=== PATIENT | male | born 1930 | race Caucasian/White ===

== ENCOUNTER 2016-11-08 16:47 | Emergency (ER) | payer MEDICARE ==
[~2016-11-08 16:47] MED LIST: FISH12002 PO; METO50TA10 PO; METO50TA2 PO; TRIA1TAB3 PO
--- NOTE | 2016-11-08 17:06 | RAD ---
CT head without contrast History: Weakness, confusion. Code stroke. Comparison: None. Procedure: Axial images are obtained of the head from the skull base through the vertex without IV contrast. One or more of the following individualized dose reduction techniques were utilized for the study: Automated exposure control Adjustment of mA and/or kV according to patient's size Use of iterative reconstruction technique. Findings: The ventricles and sulci are normal for the patient's age. No mass-effect, intracranial mass, midline shift, hemorrhage or obvious acute infarction is identified. Basilar cisterns are patent. 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 Old left medial occipital infarction is seen. Mild patchy, nonspecific white matter low attenuation is seen, probably from chronic microvascular ischemic disease. Bone windows demonstrate no significant calvarial abnormality. The visualized paranasal sinuses appear clear. Impression: 1. No acute intracranial process. Please note that CT can be relatively insensitive to acute ischemic infarction for up to 24 hours after symptom onset. 2. 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 3. Nonspecific white matter changes, probably from chronic microvascular ischemic disease. 4. Results discussed with emergency staff, Dr. Piña, at 1703 hours.
--- NOTE | 2016-11-08 17:17 | PHYS DOC ---
Adult General Chief Complaint Chief Complaint: WEAKNESS/GENERALIZED HPI HPI 86-year-old gentleman presenting to the emergency department after being somnolent. He comes today by paramedics who report the patient having slurred speech. A code stroke was activated. The patient's last known normal was 13 00. Review of systems was negative for chest pain shortness of breath abdominal pain nausea vomiting. The patient denies any pain. He is feeling better. All other review of systems is negative unless otherwise noted in history of present illness. Pertinent physical exam findings: On examination of the patient he has 5 out of 5 strength in all extremities without drift. He has a symmetric facial smile. He does not have slurred speech on my examination. Vision is within normal limits. Sensation normal. No evidence of dysdiadochokinesia. Patient has normal finger to nose. ED course: 86-year-old gentleman presenting to the emergency department with slurred speech which has improved on my examination. He is currently asymptomatic. Head CT unremarkable. Blood work and EKG obtained. I had a long risk-benefit discussion with the family. The patient is comfort care only and does not desire to stay in the hospital. I offered the patient admission for TIA like symptoms. He and his family declined respectfully. The patient was road tested in the emergency department and subsequently discharged home to follow-up with his primary care physician for an echocardiogram and for a duplex ultrasound of the carotids. The patient's goals of care I felt this to be within reason. The patient was then discharged home. Review of Systems Review of Systems SEE ABOVE. Allergies Allergies Allergies Coded Allergies Type Severity Reaction Last Updated Verified Sulfa (Sulfonamide Antibiotics) Allergy Intermediate 06/20/16 Yes meperidine Allergy Intermediate 06/20/16 Yes promethazine Allergy Intermediate 06/20/16 Yes Physical Exam Physical Exam Constitutional: Well developed, well nourished, no acute distress, non-toxic appearance. HENT: Normocephalic, atraumatic, bilateral external ears normal, oropharynx moist, no oral exudates, nose normal. [] Eyes: PERRLA, EOMI, conjunctiva normal, no discharge. [] Neck: Normal range of motion, no tenderness, supple, no stridor. Cardiovascular:Heart rate regular rhythm, no murmur [] Lungs & Thorax: Bilateral breath sounds clear to auscultation Abdomen: Bowel sounds normal, soft, no tenderness, no masses, no pulsatile masses. [] Skin: Warm, dry, no erythema, no rash. [] Back: No tenderness, no CVA tenderness. Extremities: No tenderness, no cyanosis, no clubbing, ROM intact, no edema. [] Neurologic: Mental status: Awake oriented and alert x3 Cranial nerves: Extraocular movements intact, eyebrows pilar bilaterally smile symmetric, uvula elevation, shoulder shrug intact, tongue protrusion normal DTRs: 2+ Sensation: equal and normal in all extremities Strength: 5/5 in upper and lower extremities bilaterally Psychologic: Affect normal, judgement normal, mood normal. EKG EKG [] Radiology/Procedures Radiology/Procedures [] Course & Med Decision Making Course & Med Decision Making Pertinent Labs and Imaging studies reviewed. (See chart for details) [] Dragon Disclaimer Dragon Disclaimer This chart was dictated in whole or in part using Voice Recognition software in a busy, high-work load, and often noisy Emergency Department environment. It may contain unintended and wholly unrecognized errors or omissions. Departure Departure: Impression: Primary Impression: TIA (transient ischemic attack) Disposition: 01 HOME, SELF-CARE Admitting Physician: Bola Glynn Condition: STABLE Referrals: BOLA GLYNN MD (PCP) Patient Instructions: Transient Ischemic Attack Additional Instructions: You will need an ultrasound of the heart and arteries of the neck within 2 days coordinated by her primary care physician. Thank you for allowing us to participate in your care today. If you do not have a primary care provider you can ask for a list of our primary care providers. Return to the emergency department you have any new or concerning findings. This should be evaluated by the primary care physician and any necessary consulting services for continued management within a few days after discharge. Return to emergency room if you have any new or concerning symptoms including but not limited to fever, chills, nausea, vomiting, intractable pain, any new rashes, chest pain, shortness of air, uncontrolled bleeding, difficulty breathing, and/or vision loss. LILI DELA CRUZ MD November 08, 2016 17:17
--- NOTE | 2016-11-08 17:22 | EKG ---
[address] [address] Test Date: 2016-11-08 Test Time: 17:11:52 Pat Name: CARLEY ROSALES Department: Room: Gender: M [employer]: : 1930 Requested By: LILI DELA CRUZ Order Number: [id number] Reading MD: Santana Mathis Measurements Intervals [place] Rate: 74 P: [place]: QRS: -67 QRSD: 202 T: 108 QT: 470 QTc: 522 Interpretive Statements SUSPECT V-PACED RHYTHM Electronically Signed On 11-12-2016 12:53:26 CDT by Santana Mathis
[2016-11-08 17:36] LABS: BASO % 0 % (0-3); EOS # 0.2 x10^3/uL (0.0-0.7); EOS % 3 % (0-3); HEMATOCRIT 44.6 % (39.0-53.0); HEMOGLOBIN 15.3 g/dL (13.0-17.5); LYMPH # 2.8 x10^3/uL (1.0-4.8); LYMPH % 45 % (24-48); MEAN CORPUSCULAR HEMOGLOBIN 32 pg (25-35); MEAN CORPUSCULAR HGB CONC 34 g/dL (31-37); MEAN CORPUSCULAR VOLUME 92 fL (79-100); MONO # 0.8 x10^3/uL (0.0-1.1); MONO % 12 % (0-9); NEUT # 2.4 x10^3uL (1.8-7.7); NEUT % 40 % (31-73); PLATELET COUNT 159 x10^3/uL (140-400); RED BLOOD COUNT 4.85 x10^6/uL (4.30-5.70); RED CELL DISTRIBUTION WIDTH 15.8 % (11.5-14.5); WHITE BLOOD COUNT 6.2 x10^3/uL (4.0-11.0)
[2016-11-08 17:50] LABS: ALBUMIN 3.2 g/dL (3.4-5.0); ALBUMIN/GLOBULIN RATIO 1.1 (1.0-1.7); CALCIUM 8.3 mg/dL (8.5-10.1); CREATININE 1.1 mg/dL (0.7-1.3); GFR 63.6; POTASSIUM 3.7 mmol/L (3.5-5.1); TOTAL BILIRUBIN 1.3 mg/dL (0.2-1.0); TOTAL PROTEIN 6.2 g/dL (6.4-8.2)
[2016-11-08 19:00] VITALS: BP 170/95
== END 2016-11-08 19:02 | disposition home or self-care (01) ==
LOC: ER 16:47
DX: G45.9 Transient cerebral ischemic attack, unspecified (principal); Z88.2 Allergy status to sulfonamides; Z88.8 Allergy status to other drugs, medicaments and biological substances
CPT/HCPCS: 36415; 70450; 80053; 82947; 84484; 85027; 93005; 99285-25

== ENCOUNTER 2017-07-29 03:38 | Inpatient (IN) | payer MEDICARE ==
[2017-07-29] VITALS (11 sets, daily range): BP systolic 124–165; BP diastolic 66–86
[~2017-07-29] VITALS: Ht 182.9 cm; Wt 123.4 kg
[~2017-07-29 03:38] MED LIST changes: -METO50TA10 PO; -METO50TA2 PO; +METO50TA29 PO; +METO50TA6 PO
--- NOTE | 2017-07-29 03:53 | PHYS DOC ---
Past History Past Medical History: CHF, COPD, CVA, Hypertension Additional Past Medical Histor: generalized weakness, chronic back pain since age of 14 Past Surgical History: Pacemaker, Other Additional Past Surgical Histo: back surgery right foot surgery Alcohol Use: None Drug Use: None Adult General Chief Complaint Chief Complaint: generalized weakness HPI HPI Patient is a pleasant 87-year-old male with a history of A. fib and RVR, COPD, prior CVA, generalized weakness, chronic peripheral edema, chronic lower back pain, who presents with generalized weakness has been plaguing him for months and a fall he sustained 3 days ago. Patient was trying to get out of bed to use restroom when he slipped and fell significant between the wall and the bed. He did not injure himself he has chronic lower back pain is nothing new about this today. Family physician this morning was concerned about this increased weakness although is not anything specific patient is generally has decreased energy they wanted him evaluated in the emergency department. This point patient is not complaining of chest pain, shortness of breath, fevers, chills, increased weight gain, patient has a decent appetite needs to meals a day A jokingly says it goes right to my belly. Patient denies any fevers, chills, recent cough, runny nose. He normally uses home BiPAP for sleep. He is not on typical oxygen during the day. Uses a walker to ambulate. Patient denies any specific focal neurologic deficit. Patient denies any change in medications. My differential includes but not limited to: Neurally mediated vasovagal syncope, situational syncope, cardiac sinus syncope , orthostatic hypertension, medications, psychiatric interventions, neurologic syncope, cardiogenic syncopal B, to include organic heart disease congestive heart failure, cardiac dysrhythmia, seizure disorder, stroke or transient ischemic attack, bradycardia dysrhythmias, tachycardia dysrhythmias, PT, V. fib V. fib, cardiac abnormalities like first degree secondary third-degree AV blocks , prolonged QT, hypertrophic Cardio myopathy, severe pulmonic stenosis, pulmonary arterial hypertension, atrial myxomas, aortic stenosis, valvular failure, alcohol consumption, adrenal insufficiency, drug effects from things like antidepressants, antihypertensive agents like beta blockers, vasodilators including calcium channel blockers and nitrates, autonomic insufficiency. Review of Systems Review of Systems Constitutional: Denies fever or chills [] Eyes: Denies change in visual acuity, redness, or eye pain [] HENT: Denies nasal congestion or sore throat [] Respiratory: Denies cough but is chronically short of breath Cardiovascular: No additional information not addressed in HPI [] GI: Denies abdominal pain, nausea, vomiting, bloody stools or diarrhea [] : Denies dysuria or hematuria [] Musculoskeletal: Patient planes of chronic lower back pain since age of 14 after he sustained an injury. Integument: Denies rash or skin lesions [] Neurologic: Denies headache, focal weakness or sensory changes patient complains of generalized weakness although not new. Endocrine: Denies polyuria or polydipsia [] All other systems were reviewed and found to be within normal limits, except as documented in this note. Allergies Allergies Allergies Coded Allergies Type Severity Reaction Last Updated Verified Sulfa (Sulfonamide Antibiotics) Allergy Intermediate 06/20/16 Yes meperidine Allergy Intermediate 06/20/16 Yes promethazine Allergy Intermediate 06/20/16 Yes Physical Exam Physical Exam Constitutional: Patient is heavy obese with significant stating of his close. HENT: Normocephalic, atraumatic, bilateral external ears normal, oropharynx right with significant chapped lips., no oral exudates, nose normal. [] Eyes: PERRLA, EOMI, conjunctiva injected and dry., no discharge. [] Neck: Normal range of motion, no tenderness, supple, no stridor. [] Cardiovascular:Heart rate regular rhythm, no murmur [] Lungs & Thorax: Coarse rhonchi throughout the bases bilaterally with no clear crackles, no sensory muscle use, no retractions. Abdomen: Bowel sounds normal, soft, no tenderness, no masses, no pulsatile masses. [] Skin: Warm, dry, no erythema, no rash. [] Back: No specific midline tenderness noted. No trauma noted, no ecchymoses, no soft tissue swelling. Patient has a well-healed scar in the midline lumbar spine Extremities: No tenderness, no cyanosis, no clubbing, decreased range of motion of the lower legs bilaterally with significant +2 pitting edema to the mid thigh. Patient has no external signs of trauma in the lower legs. Neurologic: Alert and oriented X 3, normal motor function, normal sensory function, no focal deficits noted. [] Psychologic: Affect normal, judgement normal, mood normal. [] Current Patient Data Lab Results Laboratory Tests Test 2/18/18 06:40 07/29/17 10:19 07/29/17 16:20 07/29/17 16:25 Nasal Screen MRSA (PCR) Negative (Negative) Troponin I Quantitative 0.051 ng/mL (0-0.055) 0.050 ng/mL (0-0.055) Blood pH 7.47 (7.35-7.46) H Blood Gas PCO2 39 mmHg (35-46) Blood Gas PO2 75 mmHg (71-100) Blood Gas HCO3 28 mmol/L (21-28) Arterial Bld O2 Saturation (Calc) 96 % (92-99) FiO2 36 % Creatine Kinase 206 U/L (39-308) EKG EKG []EKG read by me 3:52 AM [id number] demonstrates a paced rhythm heart rate of 65 QRS width of 202 to there is a left bundle was struck pattern secondary to the paced rhythm. There is no ST segment changes consistent with acute coronary ischemia according to Elliott's criteria. Radiology/Procedures Radiology/Procedures [] [place] [address] IMAGING REPORT Signed PATIENT: CARLEY ROSALES ACCOUNT: [id number] : 1930 LOCATION: ICU AGE: 87 SEX: M EXAM STATUS: ADM IN ORD. PHYSICIAN: ELIANE ROSENTHAL MD REASON: fall from standing PROCEDURE: CT HEAD WO CONTRAST CT head without contrast 07/29/2017 CLINICAL INDICATION: Fall from standing. COMPARISON: CT head 11/08/2016. TECHNIQUE: Multiple CT images of the head were obtained without contrast according to standard protocol. *One or more of the following individualized dose reduction techniques were utilized for this examination: 1. Automated exposure control. 2. Adjustment of the mA and/or kV according to patient size. 3. Use of iterative reconstruction technique. FINDINGS: No acute intracranial hemorrhage. Encephalomalacia in the left occipital lobe, stable. No midline shift. The basal cisterns are patent. Prominence of the ventricles and subarachnoid spaces compatible with moderate generalized cerebral atrophy. Old left cerebellar hemispheric infarct. Old left thalamic lacunar infarct. Paranasal sinus mucosal thickening. IMPRESSION: 1. No acute intracranial hemorrhage. 2. Old left occipital, left thalamic and left cerebellar infarcts. 3. Moderate generalized cerebral atrophy. 4. Inflammatory paranasal sinus disease. Electronically signed by: Cassandra Allen MD (07/29/2017 6:19 AM) [facility] DICTATED AND SIGNED BY: CASSANDRA ALLEN MD DATE: 07/29/17 06 CC: JARET GLYNN MD; ELIANE ROSENTHAL MD; LIS SAMANIEGO MD ~ [place] [address] IMAGING REPORT Signed PATIENT: CARLEY ROSALES ACCOUNT: [id number] : 1930 LOCATION: ICU AGE: 87 SEX: M EXAM STATUS: ADM IN ORD. PHYSICIAN: ELIANE ROSENTHAL MD REASON: generalized weakness PROCEDURE: PORTABLE CHEST 1V EXAM: Chest one view. HISTORY: Weakness, congestive heart failure. COMPARISON: None. FINDINGS: A frontal view of the chest is obtained. A left-sided pacemaker has its leads in the right atrium and right ventricle. Hyperinflation suggests chronic obstructive pulmonary disease there are mild interstitial opacities in both bases. There is a large hiatal hernia. Prominence of the right peritracheal stripe may reflect aortic tortuosity. There is no pneumothorax or clear pleural effusion. The heart is mildly enlarged. IMPRESSION: 1. Mild pulmonary edema. Mild cardiomegaly. 2. Correlate for chronic obstructive pulmonary disease. 3. Large hiatal hernia. 4. Prominence of the right mediastinal border is likely from aortic tortuosity. Correlate with older radiographs to assess stability. DICTATED AND SIGNED BY: KEVIN PHILLIPS MD DATE: 07/29/1758 CC: JARET GLYNN MD; ELIANE ROSENTHAL MD; LIS SAMANIEGO MD ~ Course & Med Decision Making Course & Med Decision Making Pertinent Labs and Imaging studies reviewed. (See chart for details) Impression CBC is unremarkable []Patient is a pleasant increasing shortness of breath and generalized weakness. Patient comes in hypoxic when he does not normally use oxygen. He has accommodation of likely COPD and CHF.Differential diagnosis: Acute myocardial ischemia, heart failure, cardiac tamponade, bronchospasm, pulmonary embolism, pneumothorax, pulmonary infection i.e. bronchitis or pneumonia, upper airway obstruction, anaphylaxis, aspiration, psychogenic, pulmonary contusion, toxidrome, pneumomediastinum, noncardiogenic pulmonary edema or ARDS, COPD, tuberculosis, cystic fibrosis, asthma, high altitude pulmonary edema, valvular dysfunction, cardiac dysrhythmia, stroke, neuromuscular diseases like myasthenia gravis gravis, ALS, Guillain-Rose syndrome, metabolic acidosis to include diabetic ketoacidosis, sepsis, and obstructive disorders like massive obesity was considered upon arrival. Based on patient's chest x-ray proBNP and lack of response to albuterol Atrovent and Solu-Medrol it is likely congestive heart failure. Patient's CT scan shows no signs of stroke or mass Patient was admitted to the hospital pending therapy for congestive heart failure. Dragon Disclaimer Dragon Disclaimer This electronic medical record was generated, in whole or in part, using a voice recognition dictation system. Departure Departure: Impression: Primary Impression: Weakness Additional Impressions: Congestive heart failure COPD (chronic obstructive pulmonary disease) Disposition: ADMITTED INPATIENT Condition: GUARDED Referrals: JARET GLYNN MD (PCP) Problem Qualifiers ELIANE ROSENTHAL MD Jul 29, 2017 03:53
[2017-07-29] MEDS ORDERED: 0.9 % SODIUM CHLORIDE 10 ML DISP.SYRIN. IV PRN (04:00)
[2017-07-29] MEDS ORDERED: IV NORMAL SALINE 1,000ML 1,000 ML IV SCH (04:00)
[2017-07-29 04:30] LABS: BASO % 1 % (0-3); EOS % 1 % (0-3); HEMATOCRIT 43.7 % (39.0-53.0); HEMOGLOBIN 14.8 g/dL (13.0-17.5); LYMPH # 1.7 x10^3/uL (1.0-4.8); LYMPH % 32 % (24-48); MEAN CORPUSCULAR HEMOGLOBIN 31 pg (25-35); MEAN CORPUSCULAR HGB CONC 34 g/dL (31-37); MEAN CORPUSCULAR VOLUME 92 fL (79-100); MONO # 0.8 x10^3/uL (0.0-1.1); MONO % 15 % (0-9); NEUT # 2.7 x10^3uL (1.8-7.7); NEUT % 51 % (31-73); PLATELET COUNT 118 x10^3/uL (140-400); RED BLOOD COUNT 4.76 x10^6/uL (4.30-5.70); RED CELL DISTRIBUTION WIDTH 15.8 % (11.5-14.5); WHITE BLOOD COUNT 5.2 x10^3/uL (4.0-11.0)
[2017-07-29 04:49] LABS: ALBUMIN 3.1 g/dL (3.4-5.0); CREATININE 0.9 mg/dL (0.7-1.3); DIRECT BILIRUBIN 0.5 mg/dL (0.0-0.2); MAGNESIUM 1.7 mg/dL (1.8-2.4); POTASSIUM 3.9 mmol/L (3.5-5.1); TOTAL BILIRUBIN 2.2 mg/dL (0.2-1.0); TOTAL PROTEIN 6.1 g/dL (6.4-8.2)
[2017-07-29] MEDS ORDERED: ACETAMINOPHEN 325 MG TABLET PO PRN (05:15)
[2017-07-29] MEDS ORDERED: ONDANSETRON PF 4 MG/2 ML VIAL. IV PRN (05:15)
[2017-07-29] MEDS ORDERED: FUROSEMIDE 40 MG/4 ML VIAL IVP ONE (05:30)
[2017-07-29 05:38] LABS: AMORPHOUS SEDIMENT,UR PRESENT /HPF; BACTERIA,URINE 0 /HPF (0-FEW); BILIRUBIN,URINE NEG (NEG); CLARITY,URINE CLEAR; COLOR,URINE AMBER; GLUCOSE,URINE NEG (NEG); NITRITE,URINE NEG (NEG); SQUAMOUS EPITHELIAL CELL,UR OCC /LPF; UROBILINOGEN,URINE 4 mg/dL (0.2 mg/dL); WBC,URINE OCC /HPF (0-4)
--- NOTE | 2017-07-29 05:46 | EKG ---
[address] [address] Test Date: 2017-07-29 Test Time: 03:52:40 Pat Name: CARLEY ROSALES Department: Room: Gender: M [employer]: ROWENA : 1930 Requested By: ELIANE ROSENTHAL Order Number: [id number] Reading MD: Zurdo Lee Measurements Intervals [place] Rate: 65 P: 90 VA: 186 QRS: -62 QRSD: 202 T: 114 QT: 480 QTc: 505 Interpretive Statements V PACED RHYTHM Electronically Signed On 08-01-2017 9:55:27 [employer] by Zurdo Lee
[2017-07-29] MEDS ORDERED: MAGNESIUM SULFATE 2GM 50 ML IV ONE (06:00)
--- NOTE | 2017-07-29 06:22 | RAD ---
CT head without contrast 07/29/2017 CLINICAL INDICATION: Fall from standing. COMPARISON: CT head 11/08/2016. TECHNIQUE: Multiple CT images of the head were obtained without contrast according to standard protocol. *One or more of the following individualized dose reduction techniques were utilized for this examination: 1. Automated exposure control. 2. Adjustment of the mA and/or kV according to patient size. 3. Use of iterative reconstruction technique. FINDINGS: No acute intracranial hemorrhage. Encephalomalacia in the left occipital lobe, stable. No midline shift. The basal cisterns are patent. Prominence of the ventricles and subarachnoid spaces compatible with moderate generalized cerebral atrophy. Old left cerebellar hemispheric infarct. Old left thalamic lacunar infarct. Paranasal sinus mucosal thickening. IMPRESSION: 1. No acute intracranial hemorrhage. 2. Old left occipital, left thalamic and left cerebellar infarcts. 3. Moderate generalized cerebral atrophy. 4. Inflammatory paranasal sinus disease. Electronically signed by: Sandoval Allen MD (07/29/2017 6:19 AM) [facility]
[2017-07-29] MEDS ORDERED: ASPI-630 PO (07:08)
[2017-07-29] MEDS ORDERED: ESCITALOPRAM OXA5 MG PO (07:08)
[2017-07-29] MEDS: IPRATRPIUM/ALBUTEROL 0.5/2.5MG 3 ML NEBU. NEB SCH ×4 (07:49→21:28)
[2017-07-29] MEDS: METOPROLOL SUCC 24HR ER 50 MG TAB.ER.24H. PO SCH (08:26)
[2017-07-29] MEDS: ASPIRIN 81 MG TAB.CHEW PO SCH (08:26)
[2017-07-29] MEDS: CITALOPRAM 10 MG TABLET. PO SCH (08:27)
[2017-07-29] MEDS: OMEGA-3 FATTY ACIDS/FISH OIL 1,000 MG CAPSULE. PO SCH (08:27)
--- NOTE | 2017-07-29 09:08 | RAD ---
EXAM: Chest one view. HISTORY: Weakness, congestive heart failure. COMPARISON: None. FINDINGS: A frontal view of the chest is obtained. A left-sided pacemaker has its leads in the right atrium and right ventricle. Hyperinflation suggests chronic obstructive pulmonary disease there are mild interstitial opacities in both bases. There is a large hiatal hernia. Prominence of the right peritracheal stripe may reflect aortic tortuosity. There is no pneumothorax or clear pleural effusion. The heart is mildly enlarged. IMPRESSION: 1. Mild pulmonary edema. Mild cardiomegaly. 2. Correlate for chronic obstructive pulmonary disease. 3. Large hiatal hernia. 4. Prominence of the right mediastinal border is likely from aortic tortuosity. Correlate with older radiographs to assess stability.
--- NOTE | 2017-07-29 15:25 | HP ---
ADMIT DATE: 07/29/2017 HISTORY OF PRESENT ILLNESS: The patient is an 87-year-old male patient, a resident at [facility] where he lives with his who apparently came to the Emergency Room with generalized weakness, chronic peripheral edema, chronic low back pain, and came with generalized weakness, has been flagging him for the last 4 months and a fall that he sustained about 3 days ago. The patient was trying to get out of bed to use the restroom and he slipped and fell between the wall and the bed. He did not injure himself. However, he has chronic low back pain and is nothing new. A family physician saw him in the morning, was concerned about this increased weakness, although there is nothing specific just generally decreased energy and basically was sent to the Emergency Room for evaluation in the Emergency Department. By the time he arrived to the Emergency Room, he did not complain of any chest pain, shortness of breath, fever, chills. He did complain of increased weight, had a decent appetite. He eats decent meals according to him. The patient denied any fever, chills, recent cough, runny nose. He has obstructive sleep apnea, on CPAP at nighttime only and he is not typically on oxygen during the day. He uses a walker to ambulate. Denied any specific focal neurological deficit. Denied any change in medication. He was investigated in the Emergency Room and has had lab work, which showed that his beta natriuretic peptide was high at 2427. He has mild hypomagnesemia. His chest x-ray showed that he has mild pulmonary edema with mild cardiomegaly and evidence of chronic obstructive pulmonary disease, large hiatal hernia. He has prominence of the right mediastinal border, likely from aortic tortuosity. He also had a CT scan of the head, which showed no acute intracranial hemorrhage, encephalomalacia in the left occipital lobe stable. No midline shift. The basal cisterns are patent. Prominence of the ventricles and subarachnoid spaces compatible with moderate generalized cerebral atrophy. He has old left cerebellar hemispheric infarct, old left thalamic lacunar infarct, paranasal sinuses showed mucosal thickening and basically the patient was admitted with a congestive heart failure and was given IV Lasix and his potassium, magnesium was replenished and was admitted for further evaluation and to consult the client support manager. PAST MEDICAL HISTORY: Significant for chronic obstructive pulmonary disease, hypertension. He has apparently 3 strokes, one 13 years ago, one 12 years ago, and one 1 year ago. Apparently, the patient did not have any residual deficit and has been ambulatory with a walker. His other medical problem is congestive heart failure, most likely due to left ventricular systolic dysfunction; benign prostatic hypertrophy, generalized osteoarthritis as well as morbid obesity, obstructive sleep apnea. PAST SURGICAL HISTORY: Significant for bilateral hip replacement, back surgery, carpal tunnel release and bilateral cataract extraction. ALLERGIES: HE IS ALLERGIC TO SULFA DRUGS, MEPERIDINE AND PROMETHAZINE. MEDICATIONS: He is currently on following medications: He is on aspirin 81 mg once a day, escitalopram oxalate 5 mg once a day, omega-3 fatty acid once a day and metoprolol succinate 50 mg once a day. FAMILY HISTORY: Noncontributory. SOCIAL HISTORY: He is and lives with his . He apparently does not smoke, drink alcohol or use any recreational drugs. REVIEW OF SYSTEMS: The patient denied any blurring of vision. He has bilateral cataract extraction, but denied any glaucoma or macular degeneration. Denied any earache, tinnitus or sensorineural deafness. Denied any nosebleeds, stuffy nose or postnasal drip. Denied any sore throat, sore tongue, toothache, hoarseness of voice or difficulty swallowing. Denied any nausea, vomiting, diarrhea or constipation. Denied any hematemesis, melena or hematochezia. Denied any dysuria, frequency or hematuria. Did complain of nocturia. He wakes to go to the bathroom every 2 hours at nighttime. He denied any chest pain, shortness of breath and mostly denied any cough, phlegm or hemoptysis. Denied any chills, rigors, or fever. Denied any dizziness, lightheadedness, or vertigo. His main complaint is generalized weakness. PLAN: My plan is obviously to consult the client support manager given that his x-ray showed that he has mild pulmonary edema and cardiomegaly. I will definitely arrange for him to have check his CK and also check his thyroid function, do arterial blood gases to make sure that he is not retaining carbon dioxide and check his thyroid function and get physical and occupational therapy to evaluate and treat. LIS SAMANIEGO MD DR: ARABELLA/yumiko JOB#: [id number] / [id number]
[2017-07-29 16:38] LABS: BGAS PH 7.47 (7.35-7.46)
[2017-07-30] VITALS (10 sets, daily range): BP systolic 108–179; BP diastolic 59–86
--- NOTE | 2017-07-30 03:17 | CONS ---
DATE OF CONSULTATION: 07/29/2017 REFERRING PHYSICIAN: Dr. Almodovar. REASON FOR CONSULTATION: Severe weakness and history of stroke. HISTORY OF PRESENT ILLNESS: This is an 87-year-old right-handed male, who was admitted through Emergency Room after he presented with chief complaint of generalized weakness, difficulty to walk, and unsteady gait for last few days. The patient has had multiple strokes, the first was in 2012, the second one was 2011, and the last was a year ago. The stroke resulted in weakness of the right side, loss of peripheral vision and unsteady gait. Apparently, he did fall this morning while he was going to bathroom. He denies any head injuries or loss of consciousness. The patient complains of progressive weakness of the lower extremities and swelling. He has had dyspnea. He denies any fever or chills or headaches, bowel or bladder dysfunctions. Nonenhanced head CT scan revealed evidence of old left thalamic, left cerebellar, and left occipital infarct. PAST MEDICAL HISTORY: Significant for COPD; obstructive sleep apnea, required CPAP; congestive heart failure; benign prostate hypertrophy; general osteoarthritis; morbid obesity. History of 3 strokes as described above. PAST SURGICAL HISTORY: Significant for bilateral hip replacement, low back surgery, carpal tunnel syndrome, and bilateral cataract removal. FAMILY HISTORY: Noncontributory. SOCIAL HISTORY: The patient lives independently at [place] with his . He denies smoking, alcohol drinking, or illicit drug use. ALLERGIES: SULFA DRUGS, MEPERIDINE, and PROMETHAZINE. REVIEW OF SYSTEMS: A 10-point review of system was performed as mentioned above in the history of present illness. MEDICATIONS: Fish oil 2000 mg daily, Celexa 10 mg daily, Toprol-XL 50 mg daily, aspirin 81 mg daily, albuterol inhaler, and Tylenol. PHYSICAL EXAMINATION: GENERAL: Morbidly obese white male, in moderate distress. VITAL SIGNS: He weighs 281 pounds, blood pressure 130/81, respiratory rate 21, pulse is 60, and oxygen saturation is 95%, on 4 liters via nasal cannula. HEENT: Normocephalic, atraumatic, otherwise unremarkable. NECK: Supple. Negative for carotid bruit, lymphadenopathy or thyromegaly. LUNGS: With diminished breath sounds and scattered rales. CARDIOVASCULAR: Regular rhythm, normal S1, S2. ABDOMEN: Soft. Bowel sounds positive. EXTREMITIES: Positive for 3+ pitting edema. NEUROLOGICAL EXAMINATION: 1. Mental status: The patient is alert and oriented to time. 2. Speech is fluent. There is no language dysfunction. Memory, judgment, abstract thinking are fair. The patient denies hallucination or delusion. Cranial nerves: Visual field consistent with a right homonymous hemiparesis. The pupils are reactive to light and accommodation. The extraocular movements are intact. There is no nystagmus. There is no facial, motor or sensory deficit. Hearing appeared to be intact. The palate is elevated symmetrically. Sternocleidomastoid muscles are powerful bilaterally. The patient shrugs his shoulders symmetrically, protrudes his tongue in the midline without fasciculation or atrophy. 3. Motor Examination: No focal or muscle bulk was seen. The tone is normal. The strength is 4/5 in the upper extremity and -4/5 in the lower extremities. The patient has difficulty bending his knees and probably due to osteoarthritis. 4. Sensory examination revealed diminished pinprick and light touch senses over the left face and upper and lower extremities. 5. Deep tendon reflexes were symmetric and hypoactive without pathology responses. Gait not tested. DIAGNOSTIC: Initial nonenhanced head CT scan revealed evidence of generalized atrophy with old left thalamic, left cerebellar, and left occipital infarcts along with sinuses. Chest x-ray revealed mild pulmonary edema with cardiomegaly with a large hiatal hernia. LABORATORY DATA: CBC revealed white blood cells of 5200, hemoglobin 14.8, hematocrit 43.7, platelet count 118,000. Chemistry revealed sodium 141, potassium 3.9, chloride 105, CO2 28, BUN 17, creatinine 0.9, glucose 91, calcium 8, magnesium is low at 1.7, total bilirubin is high at 2.2 and direct bilirubin is high at 0.5. Liver enzymes are normal. NPB is very high at 2427. Albumin is low at 3.1. TSH is normal at 2.7 and lipase is normal at 125. Urinalysis is negative for urinary tract infections. IMPRESSION: 1. Generalized weakness - multifactorial including congestive heart failure, morbid obesity, chronic obstructive pulmonary disease, and osteoarthritis. 2. Multiple strokes over the last 13 years resulting in right hemisensory deficit and right homonymous hemianopsia. 3. Multiple medical problems include morbid obesity, chronic obstructive pulmonary disease, obstructive sleep apnea, osteoarthritis, and congestive heart failure. RECOMMENDATION: 1. Treat the underlying pulmonary edema. The patient has been given furosemide intravenously. 2. Aggressive weight loss. 3. Continue with CPAP therapy. 4. Cardiology consult has been ordered. 5. Treat the underlying hypokalemia and hypomagnesemia. 6. Physical therapy evaluation. M Kervin MALDONADO MD DR: MILLIE/yumiko JOB#: [id number] / [id number]
[2017-07-30] MEDS: IPRATRPIUM/ALBUTEROL 0.5/2.5MG 3 ML NEBU. NEB SCH ×4 (05:19→21:29)
[2017-07-30 07:10] LABS: BASO % 0 % (0-3); EOS % 0 % (0-3); HEMATOCRIT 44.3 % (39.0-53.0); HEMOGLOBIN 14.8 g/dL (13.0-17.5); LYMPH # 1.7 x10^3/uL (1.0-4.8); LYMPH % 34 % (24-48); MEAN CORPUSCULAR HEMOGLOBIN 31 pg (25-35); MEAN CORPUSCULAR HGB CONC 34 g/dL (31-37); MEAN CORPUSCULAR VOLUME 92 fL (79-100); MONO # 0.9 x10^3/uL (0.0-1.1); MONO % 18 % (0-9); NEUT # 2.4 x10^3uL (1.8-7.7); NEUT % 48 % (31-73); PLATELET COUNT 108 x10^3/uL (140-400); RED CELL DISTRIBUTION WIDTH 15.5 % (11.5-14.5); WHITE BLOOD COUNT 5.1 x10^3/uL (4.0-11.0)
[2017-07-30 07:15] LABS: C REACTIVE PROTEIN 31.5 mg/L (0-3.3); CALCIUM 7.9 mg/dL (8.5-10.1); CREATININE 0.9 mg/dL (0.7-1.3); POTASSIUM 3.5 mmol/L (3.5-5.1); TOTAL BILIRUBIN 1.7 mg/dL (0.2-1.0); TOTAL PROTEIN 5.9 g/dL (6.4-8.2)
[2017-07-30 08:17] LABS: SEDIMENTATION RATE 0 (0-15)
[2017-07-30] MEDS: CITALOPRAM 10 MG TABLET. PO SCH (08:47)
[2017-07-30] MEDS: OMEGA-3 FATTY ACIDS/FISH OIL 1,000 MG CAPSULE. PO SCH (08:48)
[2017-07-30] MEDS: METOPROLOL SUCC 24HR ER 50 MG TAB.ER.24H. PO SCH (08:48)
[2017-07-30] MEDS: ASPIRIN 81 MG TAB.CHEW PO SCH (08:48)
--- NOTE | 2017-07-30 10:13 | PDOC2 ---
[facility] 07/30/17 1012: CONSULT Date of Admission DATE: 07/30/17 TIME: 09:48 Reason for Consult: CHF Problem List Problems Medical Problems: (1) Congestive heart failure Status: Acute (2) COPD (chronic obstructive pulmonary disease) Status: Acute (3) Weakness Status: Acute History of Present Illness Mr Haines is an 87 year old male who presented to the ED with complaints of generalized weakness. He apparently slipped and fell several days ago while trying to get out of bed to the restroom. He had been having complaints of fatigue and weakness for a few months. He was advised to present for evaluation by his PCP. He denies any chest pain. He does report some increased dyspnea on exertion recently. He denies orthopnea or PND and sleeps with 1 pillow. He denies any recent increase in edema and does not weigh himself regularly. He denies palpitations, lightheadedness or syncope. He reports he has had his current pacemaker for about 8 years and does not want another one. He normally follows with Dr Bhardwaj for cardiac care. CXR in the ED revealed pulmonary edema so consult was called. He is currently requiring 4 liters oxygen by nasal cannula and does not wear oxygen normally at home. Past Medical History atrial fibrillation, COPD, hypertension, CVA, TEMITOPE on CPAP, Pacemaker placement Past Surgical History back surgery and hip joint replacement, pacemaker placement Family History non contributory due to age Social History Non smoker, No significant ETOH, no illicit drug use, lives in assisted living. Current Medications Current Medications Sodium Chloride 1,000 ml @ 250 mls/hr Q4H IV Last administered on 07/29/17at 04 :17; Start 07/29/17 at 04:00; Stop 07/29/17 at 07:59; Status DC Sodium Chloride (Normal Saline Flush) 10 ml QSHIFT PRN IV AFTER MEDS AND BLOOD DRAWS; Start 07/29/17 at 04:00 Furosemide (Lasix) 80 mg 1X ONCE IVP Last administered on 07/29/17at 05:38; Start 07/29/17 at 05:30; Stop 07/29/17 at 05:31; Status DC Ondansetron HCl (Zofran) 4 mg PRN Q4HRS PRN IV NAUSEA/VOMITING; Start 07/29/17 at 05:15; Stop 07/30/17 at 05:14; Status DC Acetaminophen (Tylenol) 650 mg PRN Q4HRS PRN PO FEVER; Start 07/29/17 at 05:15 ; Stop 07/30/17 at 05:14; Status DC Albuterol/ Ipratropium (Duoneb) 3 ml RTQID NEB Last administered on 07/30/17at 05:19; Start 07/29/17 at 08:00; Stop 07/30/17 at 07:59; Status DC Magnesium Sulfate 50 ml @ 25 mls/hr 1X ONCE IV Last administered on 07/29/17at 05:50; Start 07/29/17 at 06:00; Stop 07/29/17 at 07:59; Status DC Aspirin (Children'S Aspirin) 81 mg DAILY PO Last administered on 07/30/17at 08: 48; Start 07/29/17 at 09:00 Metoprolol Succinate (Toprol Xl) 50 mg DAILY PO Last administered on 07/30/17at 08:48; Start 07/29/17 at 09:00 Citalopram Hydrobromide (CeleXA) 10 mg DAILY PO Last administered on 07/30/17at 08:47; Start 07/29/17 at 09:00 Fish Oil (Fish Oil) 2,000 mg DAILY PO Last administered on 07/30/17at 08:48; Start 07/29/17 at 09:00 Active Scripts Active Reported Aspirin 81 Mg Tab.chew 81 Mg PO DAILY Escitalopram Oxalate 5 Mg Tablet 5 Mg PO DAILY Metoprolol Succinate ( Xl ) (Metoprolol Succinate) 50 Mg Tab.er.24h 50 Mg PO DAILY [place] 3-6-9 1,200 mg Softgel (Fish Oil/Borage/Flax/Om3,6,9#1) 1,200 Mg Capsule 2 ,400 Mg PO DAILY Allergies: Coded Allergies: Sulfa (Sulfonamide Antibiotics) (Verified Allergy, Intermediate, 06/20/16) meperidine (Verified Allergy, Intermediate, 06/20/16) promethazine (Verified Allergy, Intermediate, 06/20/16) Review of System as per HPI General: Alert, Cooperative, No acute distress Lungs: Other (decreased with scattered basilar crackles) Heart: Regular rate, Normal S1, Normal S2 Abdomen: Normal bowel sounds, Soft, No tenderness Extremities: No cyanosis, Other (2-3+ bilateral lower extremity edema) Neuro: Normal speech Psych/Mental Status: Mood NL VITALS Vital Signs Date Time Temp Pulse Resp B/P (MAP) Pulse Ox O2 Delivery O2 Flow Rate FiO2 07/30/17 09:22 64 22 138/70 (92) 94 Nasal Cannula 4.0 07/29/17 19:00 98.1 Labs Laboratory Tests Test 07/29/17 04:15 07/29/17 05:19 07/29/17 06:40 07/29/17 10:19 White Blood Count 5.2 x10^3/uL (4.0-11.0) Red Blood Count 4.76 x10^6/uL (4.30-5.70) Hemoglobin 14.8 g/dL (13.0-17.5) Hematocrit 43.7 % (39.0-53.0) Mean Corpuscular Volume 92 fL (79-100) Mean Corpuscular Hemoglobin 31 pg (25-35) Mean Corpuscular Hemoglobin Concent 34 g/dL (31-37) Red Cell Distribution Width 15.8 % (11.5-14.5) Platelet Count 118 x10^3/uL (140-400) Neutrophils (%) (Auto) 51 % (31-73) Lymphocytes (%) (Auto) 32 % (24-48) Monocytes (%) (Auto) 15 % (0-9) Eosinophils (%) (Auto) 1 % (0-3) Basophils (%) (Auto) 1 % (0-3) Neutrophils # (Auto) 2.7 x10^3uL (1.8-7.7) Lymphocytes # (Auto) 1.7 x10^3/uL (1.0-4.8) Monocytes # (Auto) 0.8 x10^3/uL (0.0-1.1) Eosinophils # (Auto) 0.0 x10^3/uL (0.0-0.7) Basophils # (Auto) 0.0 x10^3/uL (0.0-0.2) Sodium Level 141 mmol/L (136-145) Potassium Level 3.9 mmol/L (3.5-5.1) Chloride Level 105 mmol/L (98-107) Carbon Dioxide Level 28 mmol/L (21-32) Anion Gap 8 (6-14) Blood Urea Nitrogen 17 mg/dL (8-26) Creatinine 0.9 mg/dL (0.7-1.3) Estimated GFR (Cockcroft-Gault) 80.0 Glucose Level 91 mg/dL (70-99) Calcium Level 8.0 mg/dL (8.5-10.1) Magnesium Level 1.7 mg/dL (1.8-2.4) Total Bilirubin 2.2 mg/dL (0.2-1.0) Direct Bilirubin 0.5 mg/dL (0.0-0.2) Aspartate Amino Transf (AST/SGOT) 28 U/L (15-37) Alanine Aminotransferase (ALT/SGPT) 21 U/L (16-63) Alkaline Phosphatase 52 U/L (46-116) Troponin I Quantitative 0.043 ng/mL (0-0.055) 0.051 ng/mL (0-0.055) VU-Cmm-O-Type Natriuretic Peptide 2427 pg/mL (0-449) Total Protein 6.1 g/dL (6.4-8.2) Albumin 3.1 g/dL (3.4-5.0) Lipase 125 U/L (73-393) Thyroid Stimulating Hormone (TSH) 2.707 uIU/mL (0.358-3.740) Urine Collection Type Unknown Urine Color Aniya Urine Clarity Clear Urine pH 7.0 Urine Specific [place] 1.020 Urine Protein Trace (NEG-TRACE) Urine Glucose (UA) Neg mg/dL (NEG) Urine Ketones (Stick) 15 mg/dL (NEG) Urine Blood Small (NEG) Urine Nitrite Neg (NEG) Urine Bilirubin Neg (NEG) Urine Urobilinogen Dipstick 4 mg/dL (0.2 mg/dL) Urine Leukocyte Esterase Neg (NEG) Urine RBC 6-10 /HPF (0-2) Urine WBC Occ /HPF (0-4) Urine Squamous Epithelial Cells Occ /LPF Urine Amorphous Sediment Present /HPF Urine Bacteria 0 /HPF (0-FEW) Urine Mucus Slight /LPF Nasal Screen MRSA (PCR) Negative (Negative) Test 07/29/17 16:20 07/29/17 16:25 07/30/17 05:48 Blood Gas pH 7.47 (7.35-7.46) Blood Gas PCO2 39 mmHg (35-46) Blood Gas PO2 75 mmHg (71-100) Blood Gas HCO3 28 mmol/L (21-28) Arterial Bld O2 Saturation (Calc) 96 % (92-99) FiO2 36 % Creatine Kinase 206 U/L (39-308) Troponin I Quantitative 0.050 ng/mL (0-0.055) White Blood Count 5.1 x10^3/uL (4.0-11.0) Red Blood Count 4.80 x10^6/uL (4.30-5.70) Hemoglobin 14.8 g/dL (13.0-17.5) Hematocrit 44.3 % (39.0-53.0) Mean Corpuscular Volume 92 fL (79-100) Mean Corpuscular Hemoglobin 31 pg (25-35) Mean Corpuscular Hemoglobin Concent 34 g/dL (31-37) Red Cell Distribution Width 15.5 % (11.5-14.5) Platelet Count 108 x10^3/uL (140-400) Neutrophils (%) (Auto) 48 % (31-73) Lymphocytes (%) (Auto) 34 % (24-48) Monocytes (%) (Auto) 18 % (0-9) Eosinophils (%) (Auto) 0 % (0-3) Basophils (%) (Auto) 0 % (0-3) Neutrophils # (Auto) 2.4 x10^3uL (1.8-7.7) Lymphocytes # (Auto) 1.7 x10^3/uL (1.0-4.8) Monocytes # (Auto) 0.9 x10^3/uL (0.0-1.1) Eosinophils # (Auto) 0.0 x10^3/uL (0.0-0.7) Basophils # (Auto) 0.0 x10^3/uL (0.0-0.2) Erythrocyte Sedimentation Rate 0 (0-15) Sodium Level 140 mmol/L (136-145) Potassium Level 3.5 mmol/L (3.5-5.1) Chloride Level 103 mmol/L (98-107) Carbon Dioxide Level 29 mmol/L (21-32) Anion Gap 8 (6-14) Blood Urea Nitrogen 21 mg/dL (8-26) Creatinine 0.9 mg/dL (0.7-1.3) Estimated GFR (Cockcroft-Gault) 80.0 BUN/Creatinine Ratio 23 (6-20) Glucose Level 94 mg/dL (70-99) Calcium Level 7.9 mg/dL (8.5-10.1) Total Bilirubin 1.7 mg/dL (0.2-1.0) Aspartate Amino Transf (AST/SGOT) 31 U/L (15-37) Alanine Aminotransferase (ALT/SGPT) 20 U/L (16-63) Alkaline Phosphatase 49 U/L (46-116) C-Reactive Protein 31.5 mg/L (0-3.3) Total Protein 5.9 g/dL (6.4-8.2) Albumin 3.0 g/dL (3.4-5.0) Albumin/Globulin Ratio 1.0 (1.0-1.7) Images CXR - IMPRESSION: 1. Mild pulmonary edema. Mild cardiomegaly. 2. Correlate for chronic obstructive pulmonary disease. 3. Large hiatal hernia. 4. Prominence of the right mediastinal border is likely from aortic tortuosity. Correlate with older radiographs to assess stability. Assessment/Plan 1. acute CHF - echo for LV function, continue diuresis and oxygen. Request records from [facility]. 2. PPM - check device 3. hypertension - home meds, diuresis and add CHAY if required 4. ? history of atrial fibrillation - request records. continue metoprolol, check pacemaker. Poor candidate for anticoagulation due to fall risk at this time. Problems: MAHAMED BEYER MD 07/30/17 1414: CONSULT Allergies: Coded Allergies: Sulfa (Sulfonamide Antibiotics) (Verified Allergy, Intermediate, 06/20/16) meperidine (Verified Allergy, Intermediate, 06/20/16) promethazine (Verified Allergy, Intermediate, 06/20/16) Assessment/Plan Patient seen and examined. Agree with COMIC ILLUSTRATOR's assessment and plan Congestive heart failure most probably acute on chronic diastolic Continue diuresis Check 2-D echo to assess LV systolic function Telemetry showed atrial paced rhythm Agree with interrogating patient's pacemaker We will review records from primary asphalt paver operator and make further recommendations Thank you for your consultation Problems: TERE NATION APRN Jul 30, 2017 10:12 MAHAMED BEYER MD Jul 30, 2017 14:14
[2017-07-30] MEDS ORDERED: POTASSIUM CHLORIDE 20 MEQ TABLET.ER. PO ONE (10:45)
[2017-07-30] MEDS ORDERED: FUROSEMIDE 40 MG/4 ML VIAL IVP ONE (10:45)
[2017-07-30] MEDS: MAGNESIUM OXIDE 400 MG TABLET PO SCH (10:55)
--- NOTE | 2017-07-30 16:01 | HP ---
ADMIT DATE: 07/29/2017 REASON FOR ADMISSION: This is an 87-year-old male who presents to the Emergency Room for weakness and multiple falls while trying to get out of bed. He has had some increased dyspnea on exertion, lower extremity swelling, and some hypoxia. PAST MEDICAL HISTORY: Significant for TIAs, altered mental status, history of CVA, COPD, congestive heart failure. MEDICATIONS: Reviewed and are available on the MAR. PAST SURGICAL HISTORY: Pacemaker. SOCIAL HISTORY: Does not smoke or drink. 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 REVIEW OF SYSTEMS: Negative per him. OBJECTIVE: VITAL SIGNS: Blood pressure is 138/70, pulse 64, respirations 22, pulse ox 94% on 4 liters. Height and weight are not mentioned. GENERAL: An 87-year-old sitting in the chair. He is very hard of hearing and does not have his hearing aids. HEENT: His eyes are clear. Nose patent. Throat clear. Tongue was slightly dry. NECK: Supple, without adenopathy. LUNGS: With a few crackles. CARDIOVASCULAR: Regular rhythm and rate, slight 2/6 systolic murmur. ABDOMEN: Soft, nontender. EXTREMITIES: With 2+ edema. NEUROLOGIC: He seems appropriate. Poor historian, but is behaving appropriately. SKIN: The patient has extensive actinic keratoses on his arms, from his hand up to his elbow. He also has a large bruise on the left side from falling. LABORATORY DATA: Blood gas is normal except for pH of 7.47. CBC, platelet count of 108,000, white count is normal. Chemistry profile, magnesium 1.7, 3.0 albumin, troponin 0.051 and 0.050, BNP 2427. Total bilirubin 2.2, now has come down to 1.7. Chest x-ray: Mild pulmonary edema, COPD, large hiatal hernia. EKG, paced rhythm. ASSESSMENT: 1. Mild pulmonary edema. 2. Mild cardiomegaly. 3. Congestive heart failure. 4. Pacemaker. 5. Hypomagnesemia. 6. Hypertension. 7. Recent fall. PLAN: PT, OT, breathing treatments. Replace his magnesium. I and O. KOFFI WING DO DR: SIN/yumiko JOB#: [id number] / [id number]
--- NOTE | 2017-07-30 16:29 | CARD ---
MR#: [id number] Date of Study: 07/30/2017 Ordering Physician: LIS SAMANIEGO, Referring Physician: LIS SAMANIEGO, Tech: Kelly Lockhart RDCS APPROVED REPORT EXAM: Two-dimensional and M-mode echocardiogram with Doppler and color Doppler. Other Information Quality : Good INDICATION LV Function:Systolic 2D DIMENSIONS RVDd2.6 (2.9-3.5cm)Left Atrium(2D)4.5 (1.6-4.0cm) IVSd1.0 (0.7-1.1cm)Aortic Root(2D)3.0 (2.0-3.7cm) LVDd5.0 (3.9-5.9cm)LVOT Diameter2.3 (1.8-2.4cm) PWd1.0 (0.7-1.1cm)LVDs3.4 (2.5-4.0cm) FS (%) 31.1 %SV68.6 ml LVEF(%)58.6 (>50%) Aortic Valve AoV Peak Fernando.147.3cm/sAoV VTI27.3cm AO Peak GR.8.7mmHgLVOT Peak Fernando.97.3cm/s LVOT VTI 22.12cmAO Mean GR.5mmHg BÁRBARA (VMAX)2.15rj3JLX (VTI)3.46cm2 AI P 1/2 Yvmc878dv Mitral Valve MV E Uzxmimwp591.3cm/sMV DECEL SFTY539nv MV A Uoxfqadk74.6cm/sE/A Ratio1.4 Tricuspid Valve TR P. Pzdaqbao629kb/sRAP GRENTARC4enNt TR Peak Gr.20olDlGMJH28fyNn Pulmonary Vein S1 Vimmlwkd40.6cm/sD2 Nwmtnyrc30.6cm/s LEFT VENTRICLE The left ventricle is normal size. There is normal left ventricular wall thickness. The left ventricu lar systolic function is normal. The Ejection Fraction is 55%. There is normal LV segmental wall yani on. Transmitral Doppler flow pattern is Grade II-pseudonormal filling dynamics. RIGHT VENTRICLE The right ventricle is normal size. The right ventricular systolic function is normal. There is a pac emaker lead in the right ventricle. ATRIA The left atrium is mildly dilated. The right atrium is moderately dilated. A pacemaker is seen in the right atrium consistent with history. The interatrial septum is intact with no evidence for an atria l septal defect or patent foramen ovale as noted on 2-D or Doppler imaging. AORTIC VALVE The aortic valve is calcified but opens well. Doppler and Color Flow revealed mild to moderate aortic regurgitation. There is no significant aortic valvular stenosis. MITRAL VALVE The mitral valve is calcified but opens well. Posterior mitral annular calcification is mild. There i s no evidence of mitral valve prolapse. There is no mitral valve stenosis. Doppler and Color-flow rev ealed trace to mild mitral regurgitation. TRICUSPID VALVE The tricuspid valve is normal in structure and function. Doppler and Color Flow revealed mild tricusp id regurgitation. There is moderate pulmonary hypertension. The PA pressure was estimated at 47 mmHg. There is no tricuspid valve stenosis. PULMONIC VALVE The pulmonary valve is normal in structure and function. Doppler and Color Flow revealed trace pulmon ic valvular regurgitation. There is no pulmonic valvular stenosis. GREAT VESSELS The aortic root is normal in size. The ascending aorta is not well seen. The IVC is normal in size an d collapses >50% with inspiration. PERICARDIAL EFFUSION There is no evidence of significant pericardial effusion. Critical Notification Critical Value: No <Conclusion> The left ventricular systolic function is normal. The Ejection Fraction is 55%. There is normal LV segmental wall motion. There is a pacemaker lead in the right ventricle. The left atrium is mildly dilated. Mild to moderate aortic regurgitation. Trace to mild mitral regurgitation. Mild tricuspid regurgitation. There is moderate pulmonary hypertension. The PA pressure was estimated at 47 mmHg. There is no evidence of significant pericardial effusion. Signed by : Mychal Wasserman, Electronically Approved : 07/30/2017 16:29:04
[2017-07-30 20:33] LABS: INFLUENZA A PATIENT NEGATIVE (NEGATIVE); INFLUENZA B PATIENT POSITIVE (NEGATIVE)
[2017-07-30] MEDS: OSELTAMIVIR 75 MG CAPSULE PO SCH (21:18)
[2017-07-30] MEDS: guaiFENesin DM 600/30MG 1 TAB TAB.ER.12H PO SCH (21:18)
--- NOTE | 2017-07-30 23:33 | PN ---
DATE: SUBJECTIVE: The patient continues to complain of generalized weakness, difficulty standing and walking, and shortness of breath. Also, complains of increasing swelling of the lower extremities. OBJECTIVE: GENERAL: Obese white male, in moderate respiratory distress. VITAL SIGNS: Afebrile, blood pressure 138/70, respiratory rate 22, pulse is 64 and regular, oxygen saturation 94% on 4 liters via nasal cannula and temperature 98.3. HEENT: Normocephalic, atraumatic, otherwise unremarkable. NECK: Supple. Negative for carotid bruit, JVD, lymphadenopathy or thyromegaly. LUNGS: With diminished breath sounds and scattered rales. Crackles on the bases. CARDIOVASCULAR: Regular rate and rhythm, normal S1, S2. ABDOMEN: Soft. Bowel sounds positive. EXTREMITIES: 3+ pitting edema. NEUROLOGIC: Mental status: The patient is alert and oriented to himself and place. Speech is fluent. No language dysfunction. Memory, judgment, and abstract thinkings are fair. The patient denies hallucination or delusion. Cranial nerves are grossly intact except for hearing loss and right homonymous hemianopsia. Motor Examination: No focal muscle bulk was seen. The strength was 4/5 throughout. Sensory examination revealed normal pinprick and light touch senses throughout. Deep tendon reflexes were symmetric and hypoactive with absent Achilles responses. Gait unsteady stance. LABORATORY DATA: CBC revealed white blood cells of 5.1, hemoglobin 14.8, hematocrit 44.3, platelet count 108,000. Chemistry revealed a sodium of 140, potassium 3.5, chloride 103, CO2 29. BUN 21, creatinine is 0.9, glucose is 94, calcium 7.9, magnesium is high at 1.7. Echocardiogram revealed a normal left ventricular systolic function with ejection fraction of 55, mild to moderate aortic regurgitation and mild mitral regurgitation, otherwise unremarkable. IMPRESSION: 1. Generalized weakness, probably multifactorial. 2. Multiple medical problems include obesity, obstructive sleep apnea, COPD, congestive heart failure and mild pulmonary edema. 3. Multiple old strokes. The last one was a year ago, resulted in a right homonymous hemianopsia. RECOMMENDATIONS: 1. Continue with current managements with diuretic and beta blockers and Cardiology recommendations. 2. Physical therapy evaluation and management. 3. Aggressive weight loss. M Kervin MALDONADO MD DR: MILLIE/yumiko JOB#: [id number] / [id number]
[2017-07-31 01:36] VITALS: BP 108/58
[2017-07-31 05:30] VITALS: BP 143/80
[2017-07-31] MEDS: IPRATRPIUM/ALBUTEROL 0.5/2.5MG 3 ML NEBU. NEB SCH ×4 (06:15→21:20)
[2017-07-31 06:48] LABS: BASO % 0 % (0-3); EOS # 0.1 x10^3/uL (0.0-0.7); EOS % 1 % (0-3); HEMATOCRIT 43.3 % (39.0-53.0); HEMOGLOBIN 14.8 g/dL (13.0-17.5); LYMPH # 2.3 x10^3/uL (1.0-4.8); LYMPH % 42 % (24-48); MEAN CORPUSCULAR HEMOGLOBIN 31 pg (25-35); MEAN CORPUSCULAR HGB CONC 34 g/dL (31-37); MEAN CORPUSCULAR VOLUME 91 fL (79-100); MONO % 19 % (0-9); NEUT % 38 % (31-73); PLATELET COUNT 95 x10^3/uL (140-400); RED BLOOD COUNT 4.75 x10^6/uL (4.30-5.70); RED CELL DISTRIBUTION WIDTH 15.6 % (11.5-14.5); WHITE BLOOD COUNT 5.4 x10^3/uL (4.0-11.0)
[2017-07-31 07:00] VITALS: BP 143/80
[2017-07-31 07:04] LABS: ALBUMIN 2.9 g/dL (3.4-5.0); CALCIUM 7.9 mg/dL (8.5-10.1); CREATININE 0.9 mg/dL (0.7-1.3); MAGNESIUM 1.9 mg/dL (1.8-2.4); POTASSIUM 3.5 mmol/L (3.5-5.1); TOTAL BILIRUBIN 1.6 mg/dL (0.2-1.0); TOTAL PROTEIN 5.9 g/dL (6.4-8.2)
[2017-07-31] MEDS: ASPIRIN 81 MG TAB.CHEW PO SCH (08:35)
[2017-07-31] MEDS: OSELTAMIVIR 75 MG CAPSULE PO SCH ×2 (08:35→20:42)
[2017-07-31] MEDS: METOPROLOL SUCC 24HR ER 50 MG TAB.ER.24H. PO SCH (08:35)
[2017-07-31] MEDS: MAGNESIUM OXIDE 400 MG TABLET PO SCH (08:35)
[2017-07-31] MEDS: OMEGA-3 FATTY ACIDS/FISH OIL 1,000 MG CAPSULE. PO SCH (08:35)
[2017-07-31] MEDS: guaiFENesin DM 600/30MG 1 TAB TAB.ER.12H PO SCH ×2 (08:35→20:41)
[2017-07-31] MEDS: ENOXAPARIN 40 MG/0.4 ML DISP.SYRIN. SQ SCH (08:43)
--- NOTE | 2017-07-31 08:44 | PN ---
DATE: 07/31/2017 SUBJECTIVE: The patient denies any new medical neurological complaints. He continues to have complaints of generalized weakness. He denies headaches, visual disturbances, nausea, vomiting, chest pain, but he does have shortness of breath. OBJECTIVE: GENERAL: Obese white male, not in acute distress. VITAL SIGNS: Blood pressure 143/80, respiratory rate 16, pulse is 60, temperature is 98.4, oxygen saturation is 98% on 4 liters by nasal cannula. HEENT: Normocephalic, atraumatic, otherwise unremarkable. NECK: Supple. Negative for carotid bruit, lymphadenopathy or thyromegaly. LUNGS: With very mild scattered rales in the base with diminished breath sounds. No wheezing. CARDIOVASCULAR: Regular rate and rhythm, normal S1, S2. ABDOMEN: Soft. Bowel sounds positive. EXTREMITIES: 1+ positive pitting edema. NEUROLOGIC: The patient is alert and oriented x 3. Speech is fluent. There is no language dysfunction. Cranial nerves are intact. No focal motor or sensory deficit. The strength is 4/5 throughout. Sensory examination revealed normal pinprick and light touch senses throughout. Deep tendon reflexes were symmetric and hypoactive with absent Achilles responses. Gait: The patient has unsteady stance. LABORATORY DATA: CBC revealed white blood cells of 5.4 thousand, hemoglobin 14.8, hematocrit 43.3, platelet count is 95,000. Chemistry revealed sodium of 142, potassium 3.5, chloride 104, CO2 is 33. BUN 22, creatinine 0.9, glucose 95, calcium 7.9. Liver enzymes are normal. Influenza B is positive. Influenza A is negative. IMPRESSION: 1. Frequent falls secondary to generalized weakness. 2. Mild congestive heart failure and pulmonary edema. 3. Multiple medical problems including obesity, COPD, obstructive sleep apnea. 4. Flu infections with positive influenza B. 5. 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 RECOMMENDATIONS: Continue with current management as initiated by Dr. Clayton and physical therapy as tolerated. Continue with previous neurological recommendations. M Kervin MALDONADO MD DR: MILLIE/yumiko JOB#: [id number] / [id number]
--- NOTE | 2017-07-31 09:01 | PDOC ---
PROGRESS NOTES Diagnosis Problem Problems Medical Problems: (1) Congestive heart failure Status: Acute (2) COPD (chronic obstructive pulmonary disease) Status: Acute (3) Weakness Status: Acute Assessment Problems Medical Problems: (1) Congestive heart failure Status: Acute (2) COPD (chronic obstructive pulmonary disease) Status: Acute (3) Weakness Status: Acute 1. Respiratory failure - multifactorial Acute on chronic diastolic heart failure - Continue diuresis, change to PO in am. COPD exacerbation/Influenza B - mgmt per PCP 2. Hypertension - add ACEI 3. hx atrial fibrillation - remains a paced, v sensed, aspirin for stroke prophylaxis as he is a fall risk. Await records. 4. PPM - device check Problems: Subjective no chest pain, breathing improving, continues to have edema Objective Echo The left ventricular systolic function is normal. The Ejection Fraction is 55%. There is normal LV segmental wall motion. There is a pacemaker lead in the right ventricle. The left atrium is mildly dilated. Mild to moderate aortic regurgitation. Trace to mild mitral regurgitation. Mild tricuspid regurgitation. There is moderate pulmonary hypertension. The PA pressure was estimated at 47 mmHg. There is no evidence of significant pericardial effusion. Vital Signs Date Time Temp Pulse Resp B/P (MAP) Pulse Ox O2 Delivery O2 Flow Rate FiO2 07/31/17 08:35 62 143/80 07/31/17 07:15 98.4 07/31/17 06:06 98 Nasal Cannula 4.0 07/31/17 05:30 16 Intake and Output 07/31/17 07:00 Intake Total 1820 ml Output Total 2300 ml Balance -480 ml Intake Oral 1820 ml Output Urine Total 2300 ml # Bowel Movements 1 Abdomen: Normal bowel sounds, Soft Heart: Regular rate, Normal S1, Normal S2 Extremities: Other (2+ edema bilateral lower extremities) General: Alert, Oriented X3, Cooperative, No acute distress HEENT: Atraumatic, Mucous membr. moist/pink Lungs: Other (decreased bases bilaterally with occ expiratory wheeze) Neuro: Normal speech Psych/Mental Status: Mental status NL, Mood NL Review of Relevant I have reviewed the following items briseida (where applicable) has been applied. Labs Laboratory Tests Test 07/29/17 10:19 07/29/17 16:20 07/29/17 16:25 07/30/17 05:48 Troponin I Quantitative 0.051 ng/mL (0-0.055) 0.050 ng/mL (0-0.055) Blood Gas pH 7.47 (7.35-7.46) Blood Gas PCO2 39 mmHg (35-46) Blood Gas PO2 75 mmHg (71-100) Blood Gas HCO3 28 mmol/L (21-28) Arterial Bld O2 Saturation (Calc) 96 % (92-99) FiO2 36 % Creatine Kinase 206 U/L (39-308) White Blood Count 5.1 x10^3/uL (4.0-11.0) Red Blood Count 4.80 x10^6/uL (4.30-5.70) Hemoglobin 14.8 g/dL (13.0-17.5) Hematocrit 44.3 % (39.0-53.0) Mean Corpuscular Volume 92 fL (79-100) Mean Corpuscular Hemoglobin 31 pg (25-35) Mean Corpuscular Hemoglobin Concent 34 g/dL (31-37) Red Cell Distribution Width 15.5 % (11.5-14.5) Platelet Count 108 x10^3/uL (140-400) Neutrophils (%) (Auto) 48 % (31-73) Lymphocytes (%) (Auto) 34 % (24-48) Monocytes (%) (Auto) 18 % (0-9) Eosinophils (%) (Auto) 0 % (0-3) Basophils (%) (Auto) 0 % (0-3) Neutrophils # (Auto) 2.4 x10^3uL (1.8-7.7) Lymphocytes # (Auto) 1.7 x10^3/uL (1.0-4.8) Monocytes # (Auto) 0.9 x10^3/uL (0.0-1.1) Eosinophils # (Auto) 0.0 x10^3/uL (0.0-0.7) Basophils # (Auto) 0.0 x10^3/uL (0.0-0.2) Erythrocyte Sedimentation Rate 0 (0-15) Sodium Level 140 mmol/L (136-145) Potassium Level 3.5 mmol/L (3.5-5.1) Chloride Level 103 mmol/L (98-107) Carbon Dioxide Level 29 mmol/L (21-32) Anion Gap 8 (6-14) Blood Urea Nitrogen 21 mg/dL (8-26) Creatinine 0.9 mg/dL (0.7-1.3) Estimated GFR (Cockcroft-Gault) 80.0 BUN/Creatinine Ratio 23 (6-20) Glucose Level 94 mg/dL (70-99) Calcium Level 7.9 mg/dL (8.5-10.1) Total Bilirubin 1.7 mg/dL (0.2-1.0) Aspartate Amino Transf (AST/SGOT) 31 U/L (15-37) Alanine Aminotransferase (ALT/SGPT) 20 U/L (16-63) Alkaline Phosphatase 49 U/L (46-116) C-Reactive Protein 31.5 mg/L (0-3.3) Total Protein 5.9 g/dL (6.4-8.2) Albumin 3.0 g/dL (3.4-5.0) Albumin/Globulin Ratio 1.0 (1.0-1.7) Test 07/30/17 19:18 07/31/17 06:10 Influenza Type A (Rapid) Negative (NEGATIVE) Influenza Type B (Rapid) Positive (NEGATIVE) White Blood Count 5.4 x10^3/uL (4.0-11.0) Red Blood Count 4.75 x10^6/uL (4.30-5.70) Hemoglobin 14.8 g/dL (13.0-17.5) Hematocrit 43.3 % (39.0-53.0) Mean Corpuscular Volume 91 fL (79-100) Mean Corpuscular Hemoglobin 31 pg (25-35) Mean Corpuscular Hemoglobin Concent 34 g/dL (31-37) Red Cell Distribution Width 15.6 % (11.5-14.5) Platelet Count 95 x10^3/uL (140-400) Neutrophils (%) (Auto) 38 % (31-73) Lymphocytes (%) (Auto) 42 % (24-48) Monocytes (%) (Auto) 19 % (0-9) Eosinophils (%) (Auto) 1 % (0-3) Basophils (%) (Auto) 0 % (0-3) Neutrophils # (Auto) 2.0 x10^3uL (1.8-7.7) Lymphocytes # (Auto) 2.3 x10^3/uL (1.0-4.8) Monocytes # (Auto) 1.0 x10^3/uL (0.0-1.1) Eosinophils # (Auto) 0.1 x10^3/uL (0.0-0.7) Basophils # (Auto) 0.0 x10^3/uL (0.0-0.2) Sodium Level 142 mmol/L (136-145) Potassium Level 3.5 mmol/L (3.5-5.1) Chloride Level 104 mmol/L (98-107) Carbon Dioxide Level 33 mmol/L (21-32) Anion Gap 5 (6-14) Blood Urea Nitrogen 22 mg/dL (8-26) Creatinine 0.9 mg/dL (0.7-1.3) Estimated GFR (Cockcroft-Gault) 80.0 BUN/Creatinine Ratio 24 (6-20) Glucose Level 95 mg/dL (70-99) Calcium Level 7.9 mg/dL (8.5-10.1) Magnesium Level 1.9 mg/dL (1.8-2.4) Total Bilirubin 1.6 mg/dL (0.2-1.0) Aspartate Amino Transf (AST/SGOT) 32 U/L (15-37) Alanine Aminotransferase (ALT/SGPT) 21 U/L (16-63) Alkaline Phosphatase 46 U/L (46-116) Total Protein 5.9 g/dL (6.4-8.2) Albumin 2.9 g/dL (3.4-5.0) Albumin/Globulin Ratio 1.0 (1.0-1.7) Medications Current Medications Sodium Chloride 1,000 ml @ 250 mls/hr Q4H IV Last administered on 07/29/17at 04 :17; Start 07/29/17 at 04:00; Stop 07/29/17 at 07:59; Status DC Sodium Chloride (Normal Saline Flush) 10 ml QSHIFT PRN IV AFTER MEDS AND BLOOD DRAWS; Start 07/29/17 at 04:00 Furosemide (Lasix) 80 mg 1X ONCE IVP Last administered on 07/29/17at 05:38; Start 07/29/17 at 05:30; Stop 07/29/17 at 05:31; Status DC Ondansetron HCl (Zofran) 4 mg PRN Q4HRS PRN IV NAUSEA/VOMITING; Start 07/29/17 at 05:15; Stop 07/30/17 at 05:14; Status DC Acetaminophen (Tylenol) 650 mg PRN Q4HRS PRN PO FEVER; Start 07/29/17 at 05:15 ; Stop 07/30/17 at 05:14; Status DC Albuterol/ Ipratropium (Duoneb) 3 ml RTQID NEB Last administered on 07/30/17at 05:19; Start 07/29/17 at 08:00; Stop 07/30/17 at 07:59; Status DC Magnesium Sulfate 50 ml @ 25 mls/hr 1X ONCE IV Last administered on 07/29/17at 05:50; Start 07/29/17 at 06:00; Stop 07/29/17 at 07:59; Status DC Aspirin (Children'S Aspirin) 81 mg DAILY PO Last administered on 07/31/17at 08: 35; Start 07/29/17 at 09:00 Metoprolol Succinate (Toprol Xl) 50 mg DAILY PO Last administered on 07/31/17at 08:35; Start 07/29/17 at 09:00 Citalopram Hydrobromide (CeleXA) 10 mg DAILY PO Last administered on 07/30/17at 08:47; Start 07/29/17 at 09:00; Status Future Hold Fish Oil (Fish Oil) 2,000 mg DAILY PO Last administered on 07/31/17at 08:35; Start 07/29/17 at 09:00 Furosemide (Lasix) 40 mg 1X ONCE IVP Last administered on 07/30/17at 10:54; Start 07/30/17 at 10:45; Stop 07/30/17 at 10:46; Status DC Potassium Chloride (Klor-Con) 20 meq 1X ONCE PO Last administered on at 10:55; Start 07/30/17 at 10:45; Stop 07/30/17 at 10:46; Status DC Magnesium Oxide (Magnesium Oxide) 400 mg DAILY PO Last administered on at 08:35; Start 07/30/17 at 10:45 Albuterol/ Ipratropium (Duoneb) 3 ml RTQID NEB Last administered on 07/31/17at 06:15; Start 07/30/17 at 12:00 Guaifenesin (MUCINEX ER with DM) 1 tab BID PO Last administered on 07/31/17at 08 :35; Start 07/30/17 at 21:00 Oseltamivir Phosphate (Tamiflu) 75 mg BID PO Last administered on 07/31/17at 08: 35; Start 07/30/17 at 22:00; Stop 08/04/17 at 21:00 Enoxaparin Sodium (Lovenox) 40 mg Q24H SQ Last administered on 07/31/17at 08:43 ; Start 07/31/17 at 08:00 Active Scripts Active Reported Aspirin 81 Mg Tab.chew 81 Mg PO DAILY Escitalopram Oxalate 5 Mg Tablet 5 Mg PO DAILY Metoprolol Succinate ( Xl ) (Metoprolol Succinate) 50 Mg Tab.er.24h 50 Mg PO DAILY [place] 3-6-9 1,200 mg Softgel (Fish Oil/Borage/Flax/Om3,6,9#1) 1,200 Mg Capsule 2 ,400 Mg PO DAILY Vitals/I & O Vital Sign - Last 24 Hours 07/30/17 07/30/17 07/30/17 07/30/17 09:22 10:51 13:30 15:32 Pulse 64 75 Resp 22 24 B/P (MAP) 138/70 (92) 134/84 (101) Pulse Ox 94 96 92 97 O2 Delivery Nasal Cannula Nasal Cannula Room Air Nasal Cannula O2 Flow Rate 4.0 4.0 4.0 07/30/17 07/30/17 07/30/17 07/30/17 17:33 20:30 20:45 21:30 Temp 98.5 98.6 Pulse 61 60 Resp 22 22 B/P (MAP) 140/65 (90) 151/86 (107) Pulse Ox 92 96 96 O2 Delivery Room Air Nasal Cannula Nasal Cannula Nasal Cannula O2 Flow Rate 4.0 4.0 4.0 07/31/17 07/31/17 07/31/17 07/31/17 01:36 05:30 06:06 07:15 Temp 98.4 Pulse 59 60 Resp 16 16 B/P (MAP) 108/58 (75) 143/80 (101) Pulse Ox 93 96 98 O2 Delivery Nasal Cannula Nasal Cannula Nasal Cannula O2 Flow Rate 4.0 4.0 4.0 07/31/17 08:35 Pulse 62 B/P (MAP) 143/80 Intake and Output 2/07/30/17 07/31/17 15:00 23:00 07:00 Intake Total 840 ml 980 ml 0 ml Output Total 800 ml 1500 ml 0 ml Balance 40 ml -520 ml 0 ml TERE NATION APRN Jul 31, 2017 09:01
[2017-07-31 11:17] VITALS: BP 133/73
[2017-07-31] MEDS ORDERED: FUROSEMIDE 40 MG/4 ML VIAL IVP ONE (13:15)
[2017-07-31] MEDS ORDERED: POTASSIUM CHLORIDE 20 MEQ TABLET.ER. PO ONE (13:15)
[2017-07-31 15:14] VITALS: BP 150/83
[2017-07-31 19:48] VITALS: BP 127/78
--- NOTE | 2017-07-31 23:04 | PN ---
DATE: 07/31/2017 CURRENT PROBLEMS: 1. [id number] diastolic heart failure. 2. Acute exacerbation of chronic obstructive pulmonary disease. 3. Influenza type B. 4. Hypomagnesemia. 5. Hypertension. 6. Recent fall. 7. Neurocognitive impairment. SUBJECTIVE: An 87-year-old admitted after a fall, found to have influenza B. He has been treated with Tamiflu. He has been seen by Cardiology, he is receiving some IV Lasix. He does have quite a bit of edema. His magnesium has been treated and start PT and OT today. OBJECTIVE: VITAL SIGNS: Blood pressure 133/73, pulse ____, respirations 21, pulse ox 95% on 2 liters. GENERAL: A pleasant elderly male in no acute distress. Color is good. HEENT: Tongue is moist. NECK: Supple. LUNGS: With some crackles in the bases. CARDIOVASCULAR: Regular rhythm and rate with a 2/6 systolic murmurs. ABDOMEN: Soft, nontender. Does have some bruising on the left flank. EXTREMITIES: With 1-2+ and 2-3+ edema. PLAN: Continue IV Lasix. Continue Tamiflu. Start PT and OT. KOFFI WING DO DR: SIN/yumiko JOB#: [id number] / [id number]
[2017-08-01 01:54] VITALS: BP 132/80
[2017-08-01 05:54] VITALS: BP 127/70
[2017-08-01 07:18] LABS: BASO % 0 % (0-3); EOS # 0.1 x10^3/uL (0.0-0.7); EOS % 2 % (0-3); HEMATOCRIT 42.5 % (39.0-53.0); HEMOGLOBIN 14.7 g/dL (13.0-17.5); LYMPH # 2.9 x10^3/uL (1.0-4.8); LYMPH % 49 % (24-48); MEAN CORPUSCULAR HEMOGLOBIN 32 pg (25-35); MEAN CORPUSCULAR HGB CONC 35 g/dL (31-37); MEAN CORPUSCULAR VOLUME 91 fL (79-100); MONO # 0.9 x10^3/uL (0.0-1.1); MONO % 15 % (0-9); NEUT % 34 % (31-73); PLATELET COUNT 105 x10^3/uL (140-400); RED BLOOD COUNT 4.66 x10^6/uL (4.30-5.70); RED CELL DISTRIBUTION WIDTH 15.5 % (11.5-14.5); WHITE BLOOD COUNT 5.8 x10^3/uL (4.0-11.0)
[2017-08-01 07:22] LABS: ALBUMIN 2.8 g/dL (3.4-5.0); ALBUMIN/GLOBULIN RATIO 0.9 (1.0-1.7); CALCIUM 7.9 mg/dL (8.5-10.1); CREATININE 0.8 mg/dL (0.7-1.3); GFR 91.7; MAGNESIUM 1.8 mg/dL (1.8-2.4); POTASSIUM 3.6 mmol/L (3.5-5.1); TOTAL BILIRUBIN 1.7 mg/dL (0.2-1.0); TOTAL PROTEIN 5.9 g/dL (6.4-8.2)
[2017-08-01] MEDS: METOPROLOL SUCC 24HR ER 50 MG TAB.ER.24H. PO SCH (08:12)
[2017-08-01] MEDS: guaiFENesin DM 600/30MG 1 TAB TAB.ER.12H PO SCH (08:12)
[2017-08-01] MEDS: OMEGA-3 FATTY ACIDS/FISH OIL 1,000 MG CAPSULE. PO SCH (08:13)
[2017-08-01] MEDS: ASPIRIN 81 MG TAB.CHEW PO SCH (08:14)
[2017-08-01] MEDS: ENOXAPARIN 40 MG/0.4 ML DISP.SYRIN. SQ SCH (08:15)
[2017-08-01] MEDS: MAGNESIUM OXIDE 400 MG TABLET PO SCH (08:15)
[2017-08-01] MEDS: OSELTAMIVIR 75 MG CAPSULE PO SCH (08:33)
[2017-08-01] MEDS ORDERED: FUROSEMIDE 20 MG TABLET PO SCH (09:00)
[2017-08-01] MEDS ORDERED: OSELTAMIVIR 75 MG CAPSULE PO SCH (09:00)
[2017-08-01] MEDS ORDERED: LISINOPRIL 2.5 MG TABLET PO SCH (09:00)
[2017-08-01] MEDS: IPRATRPIUM/ALBUTEROL 0.5/2.5MG 3 ML NEBU. NEB SCH (09:29)
[2017-08-01] MEDS ORDERED: NYSTATIN TOPICAL POWDER 15GM BOTTLE. TP SCH (10:30)
--- NOTE | 2017-08-01 11:05 | PDOC ---
PROGRESS NOTES Diagnosis Problem Problems Medical Problems: (1) Congestive heart failure Status: Acute (2) COPD (chronic obstructive pulmonary disease) Status: Acute (3) Weakness Status: Acute Assessment Problems Medical Problems: (1) Congestive heart failure Status: Acute (2) COPD (chronic obstructive pulmonary disease) Status: Acute (3) Weakness Status: Acute 1. Respiratory failure - multifactorial Acute on chronic diastolic heart failure - good diuresis with IV lasix, significant improvement in edema. change lasix to PO daily. Continue medical therapy with beta elvin and ACEI. COPD exacerbation/Influenza B - mgmt per PCP 2. Hypertension - controlled on current meds. 3. paroxysmal atrial fibrillation - remains a paced v sensed, no occurrences of a fib since in hospital. Continue aspirin for stroke prophylaxis as he is a fall risk and has refused full anticoagulation several times in the past. 4. PPM - function appropriate CV follow up 1 month outpatient Problems: Subjective feeling better, breathing better but still with occasional cough., swelling much better, no chest pain. no palpitations. Objective Vital Signs Date Time Temp Pulse Resp B/P (MAP) Pulse Ox O2 Delivery O2 Flow Rate FiO2 08/01/17 09:30 97 Nasal Cannula 2.0 08/01/17 08:14 60 127/70 08/01/17 07:49 98.7 08/01/17 05:54 16 Intake and Output 08/01/17 06:59 Intake Total 520 ml Output Total 2500 ml Balance -1980 ml Intake Oral 520 ml Output Urine Total 2500 ml # Bowel Movements 1 Abdomen: Normal bowel sounds, Soft, No tenderness Heart: Regular rate, Normal S1, Normal S2 Extremities: No cyanosis, Other (trace - 1+ edema bilateral lower extremities, much improved) General: Alert, Oriented X3, Cooperative, No acute distress HEENT: Atraumatic Lungs: Other (mildly decreased bases otherwise clear) Neuro: Normal speech, Strength at 5/5 X4 ext Psych/Mental Status: Mental status NL, Mood NL Review of Relevant I have reviewed the following items briseida (where applicable) has been applied. Labs Laboratory Tests Test 07/30/17 19:18 07/31/17 06:10 08/01/17 06:10 Influenza Type A (Rapid) Negative (NEGATIVE) Influenza Type B (Rapid) Positive (NEGATIVE) White Blood Count 5.4 x10^3/uL (4.0-11.0) 5.8 x10^3/uL (4.0-11.0) Red Blood Count 4.75 x10^6/uL (4.30-5.70) 4.66 x10^6/uL (4.30-5.70) Hemoglobin 14.8 g/dL (13.0-17.5) 14.7 g/dL (13.0-17.5) Hematocrit 43.3 % (39.0-53.0) 42.5 % (39.0-53.0) Mean Corpuscular Volume 91 fL (79-100) 91 fL (79-100) Mean Corpuscular Hemoglobin 31 pg (25-35) 32 pg (25-35) Mean Corpuscular Hemoglobin Concent 34 g/dL (31-37) 35 g/dL (31-37) Red Cell Distribution Width 15.6 % (11.5-14.5) 15.5 % (11.5-14.5) Platelet Count 95 x10^3/uL (140-400) 105 x10^3/uL (140-400) Neutrophils (%) (Auto) 38 % (31-73) 34 % (31-73) Lymphocytes (%) (Auto) 42 % (24-48) 49 % (24-48) Monocytes (%) (Auto) 19 % (0-9) 15 % (0-9) Eosinophils (%) (Auto) 1 % (0-3) 2 % (0-3) Basophils (%) (Auto) 0 % (0-3) 0 % (0-3) Neutrophils # (Auto) 2.0 x10^3uL (1.8-7.7) 2.0 x10^3uL (1.8-7.7) Lymphocytes # (Auto) 2.3 x10^3/uL (1.0-4.8) 2.9 x10^3/uL (1.0-4.8) Monocytes # (Auto) 1.0 x10^3/uL (0.0-1.1) 0.9 x10^3/uL (0.0-1.1) Eosinophils # (Auto) 0.1 x10^3/uL (0.0-0.7) 0.1 x10^3/uL (0.0-0.7) Basophils # (Auto) 0.0 x10^3/uL (0.0-0.2) 0.0 x10^3/uL (0.0-0.2) Sodium Level 142 mmol/L (136-145) 142 mmol/L (136-145) Potassium Level 3.5 mmol/L (3.5-5.1) 3.6 mmol/L (3.5-5.1) Chloride Level 104 mmol/L (98-107) 105 mmol/L (98-107) Carbon Dioxide Level 33 mmol/L (21-32) 33 mmol/L (21-32) Anion Gap 5 (6-14) 4 (6-14) Blood Urea Nitrogen 22 mg/dL (8-26) 20 mg/dL (8-26) Creatinine 0.9 mg/dL (0.7-1.3) 0.8 mg/dL (0.7-1.3) Estimated GFR (Cockcroft-Gault) 80.0 91.7 BUN/Creatinine Ratio 24 (6-20) 25 (6-20) Glucose Level 95 mg/dL (70-99) 95 mg/dL (70-99) Calcium Level 7.9 mg/dL (8.5-10.1) 7.9 mg/dL (8.5-10.1) Magnesium Level 1.9 mg/dL (1.8-2.4) 1.8 mg/dL (1.8-2.4) Total Bilirubin 1.6 mg/dL (0.2-1.0) 1.7 mg/dL (0.2-1.0) Aspartate Amino Transf (AST/SGOT) 32 U/L (15-37) 31 U/L (15-37) Alanine Aminotransferase (ALT/SGPT) 21 U/L (16-63) 20 U/L (16-63) Alkaline Phosphatase 46 U/L (46-116) 45 U/L (46-116) Total Protein 5.9 g/dL (6.4-8.2) 5.9 g/dL (6.4-8.2) Albumin 2.9 g/dL (3.4-5.0) 2.8 g/dL (3.4-5.0) Albumin/Globulin Ratio 1.0 (1.0-1.7) 0.9 (1.0-1.7) Medications Current Medications Sodium Chloride 1,000 ml @ 250 mls/hr Q4H IV Last administered on 07/29/17at 04 :17; Start 07/29/17 at 04:00; Stop 07/29/17 at 07:59; Status DC Sodium Chloride (Normal Saline Flush) 10 ml QSHIFT PRN IV AFTER MEDS AND BLOOD DRAWS; Start 07/29/17 at 04:00 Furosemide (Lasix) 80 mg 1X ONCE IVP Last administered on 07/29/17at 05:38; Start 07/29/17 at 05:30; Stop 07/29/17 at 05:31; Status DC Ondansetron HCl (Zofran) 4 mg PRN Q4HRS PRN IV NAUSEA/VOMITING; Start 07/29/17 at 05:15; Stop 07/30/17 at 05:14; Status DC Acetaminophen (Tylenol) 650 mg PRN Q4HRS PRN PO FEVER; Start 07/29/17 at 05:15 ; Stop 07/30/17 at 05:14; Status DC Albuterol/ Ipratropium (Duoneb) 3 ml RTQID NEB Last administered on 07/30/17at 05:19; Start 07/29/17 at 08:00; Stop 07/30/17 at 07:59; Status DC Magnesium Sulfate 50 ml @ 25 mls/hr 1X ONCE IV Last administered on 07/29/17at 05:50; Start 07/29/17 at 06:00; Stop 07/29/17 at 07:59; Status DC Aspirin (Children'S Aspirin) 81 mg DAILY PO Last administered on 08/01/17at 08: 14; Start 07/29/17 at 09:00 Metoprolol Succinate (Toprol Xl) 50 mg DAILY PO Last administered on 08/01/17at 08:12; Start 07/29/17 at 09:00 Citalopram Hydrobromide (CeleXA) 10 mg DAILY PO Last administered on 07/30/17at 08:47; Start 07/29/17 at 09:00; Status Future Hold Fish Oil (Fish Oil) 2,000 mg DAILY PO Last administered on 08/01/17at 08:13; Start 07/29/17 at 09:00 Furosemide (Lasix) 40 mg 1X ONCE IVP Last administered on 07/30/17at 10:54; Start 07/30/17 at 10:45; Stop 07/30/17 at 10:46; Status DC Potassium Chloride (Klor-Con) 20 meq 1X ONCE PO Last administered on at 10:55; Start 07/30/17 at 10:45; Stop 07/30/17 at 10:46; Status DC Magnesium Oxide (Magnesium Oxide) 400 mg DAILY PO Last administered on at 08:15; Start 07/30/17 at 10:45 Albuterol/ Ipratropium (Duoneb) 3 ml RTQID NEB Last administered on 08/01/17 09:29; Start 07/30/17 at 12:00 Guaifenesin (MUCINEX ER with DM) 1 tab BID PO Last administered on 08/01/17at 08 :12; Start 07/30/17 at 21:00 Oseltamivir Phosphate (Tamiflu) 75 mg BID PO Last administered on 08/01/17at 08: 33; Start 07/30/17 at 22:00; Stop 08/01/17 at 08:34; Status DC Enoxaparin Sodium (Lovenox) 40 mg Q24H SQ Last administered on 08/01/17at 08:15 ; Start 07/31/17 at 08:00 Furosemide (Lasix) 40 mg 1X ONCE IVP Last administered on 07/31/17at 13:32; Start 07/31/17 at 13:15; Stop 07/31/17 at 13:16; Status DC Potassium Chloride (Klor-Con) 20 meq 1X ONCE PO Last administered on at 13:31; Start 07/31/17 at 13:15; Stop 07/31/17 at 13:16; Status DC Furosemide (Lasix) 20 mg DAILY PO Last administered on 08/01/17at 08:13; Start 08/01/17 at 09:00 Lisinopril (Prinivil) 2.5 mg DAILY PO Last administered on 08/01/17at 08:14; Start 08/01/17 at 09:00 Oseltamivir Phosphate (Tamiflu) 75 mg BID PO Last administered on 08/01/17at 08: 36; Start 08/01/17 at 09:00; Stop 08/04/17 at 21:01 Nystatin (Nystop) 1 joseph BID TP ; Start 08/01/17 at 10:30 Active Scripts Active Reported Aspirin 81 Mg Tab.chew 81 Mg PO DAILY Escitalopram Oxalate 5 Mg Tablet 5 Mg PO DAILY Metoprolol Succinate ( Xl ) (Metoprolol Succinate) 50 Mg Tab.er.24h 50 Mg PO DAILY [place] 3-6-9 1,200 mg Softgel (Fish Oil/Borage/Flax/Om3,6,9#1) 1,200 Mg Capsule 2 ,400 Mg PO DAILY Vitals/I & O Vital Sign - Last 24 Hours 07/31/17 07/31/17 07/31/17 07/31/17 11:17 11:19 15:02 15:14 Temp 98.4 98.4 Pulse 60 62 Resp 21 17 B/P (MAP) 133/73 (93) 150/83 (105) Pulse Ox 95 96 100 O2 Delivery Nasal Cannula Nasal Cannula Nasal Cannula O2 Flow Rate 2.0 2.0 2.0 07/31/17 07/31/17 07/31/17 07/31/17 15:56 19:48 20:00 20:35 Temp 98.4 98.7 Pulse 60 Resp 20 B/P (MAP) 127/78 (94) Pulse Ox 100 96 O2 Delivery Nasal Cannula Nasal Cannula Nasal Cannula O2 Flow Rate 2.0 3.0 2.0 08/01/17 08/01/17 08/01/17 08/01/17 01:54 05:54 07:49 08:12 Temp 98.7 Pulse 91 60 60 Resp 17 16 B/P (MAP) 132/80 (97) 127/70 (89) 127/70 Pulse Ox 93 96 O2 Delivery Nasal Cannula Nasal Cannula O2 Flow Rate 3.0 2.0 08/01/17 08/01/17 08/01/17 08:14 08:33 09:30 Pulse 60 B/P (MAP) 127/70 Pulse Ox 97 O2 Delivery Nasal Cannula Nasal Cannula O2 Flow Rate 2.0 2.0 Intake and Output 07/31/17 07/31/17 08/01/17 14:59 22:59 06:59 Intake Total 120 ml 400 ml 0 ml Output Total 350 ml 1850 ml 300 ml Balance -230 ml -1450 ml -300 ml TERE NATION APRN Aug 01, 2017 11:05
[2017-08-01 11:18] VITALS: BP 129/75
--- NOTE | 2017-08-01 13:57 | PDOC3 ---
Discharge Summary Visit Information Date of Admission: Jul 29, 2017 Date of Discharge: Aug 01, 2017 Final Diagnosis Problems Medical Problems: (1) Congestive heart failure Status: Acute (2) COPD (chronic obstructive pulmonary disease) Status: Acute (3) Weakness Status: Acute heart failure Status: Acute (2) COPD (chronic obstructive pulmonary disease) Status: Acute (3) Weakness Status: Acute 1. Respiratory failure - multifactorial Acute on chronic diastolic heart failure - good diuresis with IV lasix, significant improvement in edema. change lasix to PO daily. Continue medical therapy with beta elvin and ACEI. COPD exacerbation/Influenza B - mgmt per PCP 2. Hypertension - controlled on current meds. 3. paroxysmal atrial fibrillation - remains a paced v sensed, no occurrences of a fib since in hospital. Continue aspirin for stroke prophylaxis as he is a fall risk and has refused full anticoagulation several times in the past. 4. PPM - function appropriate Hypomagnesemia. 5. Hypertension. 6. Recent fall. 7. Neurocognitive impairment. Problems: Brief Hospital Course Allergies Allergies Coded Allergies Type Severity Reaction Last Updated Verified Sulfa (Sulfonamide Antibiotics) Allergy Intermediate 06/20/16 Yes meperidine Allergy Intermediate 06/20/16 Yes promethazine Allergy Intermediate 06/20/16 Yes Vital Signs Vital Signs Date Time Temp Pulse Resp B/P (MAP) Pulse Ox O2 Delivery O2 Flow Rate FiO2 08/01/17 11:30 98.3 08/01/17 11:18 62 19 129/75 (93) 97 Nasal Cannula 2.0 Lab Results Laboratory Tests Test 07/30/17 19:18 07/31/17 06:10 08/01/17 06:10 Influenza Type A (Rapid) Negative (NEGATIVE) Influenza Type B (Rapid) Positive (NEGATIVE) White Blood Count 5.4 x10^3/uL (4.0-11.0) 5.8 x10^3/uL (4.0-11.0) Red Blood Count 4.75 x10^6/uL (4.30-5.70) 4.66 x10^6/uL (4.30-5.70) Hemoglobin 14.8 g/dL (13.0-17.5) 14.7 g/dL (13.0-17.5) Hematocrit 43.3 % (39.0-53.0) 42.5 % (39.0-53.0) Mean Corpuscular Volume 91 fL (79-100) 91 fL (79-100) Mean Corpuscular Hemoglobin 31 pg (25-35) 32 pg (25-35) Mean Corpuscular Hemoglobin Concent 34 g/dL (31-37) 35 g/dL (31-37) Red Cell Distribution Width 15.6 % (11.5-14.5) 15.5 % (11.5-14.5) Platelet Count 95 x10^3/uL (140-400) 105 x10^3/uL (140-400) Neutrophils (%) (Auto) 38 % (31-73) 34 % (31-73) Lymphocytes (%) (Auto) 42 % (24-48) 49 % (24-48) Monocytes (%) (Auto) 19 % (0-9) 15 % (0-9) Eosinophils (%) (Auto) 1 % (0-3) 2 % (0-3) Basophils (%) (Auto) 0 % (0-3) 0 % (0-3) Neutrophils # (Auto) 2.0 x10^3uL (1.8-7.7) 2.0 x10^3uL (1.8-7.7) Lymphocytes # (Auto) 2.3 x10^3/uL (1.0-4.8) 2.9 x10^3/uL (1.0-4.8) Monocytes # (Auto) 1.0 x10^3/uL (0.0-1.1) 0.9 x10^3/uL (0.0-1.1) Eosinophils # (Auto) 0.1 x10^3/uL (0.0-0.7) 0.1 x10^3/uL (0.0-0.7) Basophils # (Auto) 0.0 x10^3/uL (0.0-0.2) 0.0 x10^3/uL (0.0-0.2) Sodium Level 142 mmol/L (136-145) 142 mmol/L (136-145) Potassium Level 3.5 mmol/L (3.5-5.1) 3.6 mmol/L (3.5-5.1) Chloride Level 104 mmol/L (98-107) 105 mmol/L (98-107) Carbon Dioxide Level 33 mmol/L (21-32) 33 mmol/L (21-32) Anion Gap 5 (6-14) 4 (6-14) Blood Urea Nitrogen 22 mg/dL (8-26) 20 mg/dL (8-26) Creatinine 0.9 mg/dL (0.7-1.3) 0.8 mg/dL (0.7-1.3) Estimated GFR (Cockcroft-Gault) 80.0 91.7 BUN/Creatinine Ratio 24 (6-20) 25 (6-20) Glucose Level 95 mg/dL (70-99) 95 mg/dL (70-99) Calcium Level 7.9 mg/dL (8.5-10.1) 7.9 mg/dL (8.5-10.1) Magnesium Level 1.9 mg/dL (1.8-2.4) 1.8 mg/dL (1.8-2.4) Total Bilirubin 1.6 mg/dL (0.2-1.0) 1.7 mg/dL (0.2-1.0) Aspartate Amino Transf (AST/SGOT) 32 U/L (15-37) 31 U/L (15-37) Alanine Aminotransferase (ALT/SGPT) 21 U/L (16-63) 20 U/L (16-63) Alkaline Phosphatase 46 U/L (46-116) 45 U/L (46-116) Total Protein 5.9 g/dL (6.4-8.2) 5.9 g/dL (6.4-8.2) Albumin 2.9 g/dL (3.4-5.0) 2.8 g/dL (3.4-5.0) Albumin/Globulin Ratio 1.0 (1.0-1.7) 0.9 (1.0-1.7) Brief Hospital Course Mr. Haines is a 87 old [sex] who presented with [ ] REASON FOR ADMISSION: This is an 87-year-old male who presents to the Emergency Room for weakness and multiple falls while trying to get out of bed. He has had some increased dyspnea on exertion, lower extremity swelling, and some hypoxia.HE WAS FOUND TO BE IN CHF WELL TO HAVE INFLUENZA B. HE WAS STARTED ON TAMIFLU AND IV LASIX PER CARDIOLOGY. HE WAS SEEN BY PT AND OT. HE SLOWLY PROGRESSED AND IMPROVED TO THE POINT OF BEING A GOOD CANDIDATE FOR REHAB SERVICES AND HE WAS DISCHARGED ON 08/01 TO [facility]. Discharge Information Condition at Discharge: Improved, Stable Disposition/Orders: D/C to Another Facility Dischare Medications Current Medications Sodium Chloride 1,000 ml @ 250 mls/hr Q4H IV Last administered on 07/29/17at 04 :17; Start 07/29/17 at 04:00; Stop 07/29/17 at 07:59; Status DC Sodium Chloride (Normal Saline Flush) 10 ml QSHIFT PRN IV AFTER MEDS AND BLOOD DRAWS; Start 07/29/17 at 04:00; Stop 08/01/17 at 13:04; Status DC Furosemide (Lasix) 80 mg 1X ONCE IVP Last administered on 07/29/17at 05:38; Start 07/29/17 at 05:30; Stop 07/29/17 at 05:31; Status DC Ondansetron HCl (Zofran) 4 mg PRN Q4HRS PRN IV NAUSEA/VOMITING; Start 07/29/17 at 05:15; Stop 07/30/17 at 05:14; Status DC Acetaminophen (Tylenol) 650 mg PRN Q4HRS PRN PO FEVER; Start 07/29/17 at 05:15 ; Stop 07/30/17 at 05:14; Status DC Albuterol/ Ipratropium (Duoneb) 3 ml RTQID NEB Last administered on 07/30/17at 05:19; Start 07/29/17 at 08:00; Stop 07/30/17 at 07:59; Status DC Magnesium Sulfate 50 ml @ 25 mls/hr 1X ONCE IV Last administered on 07/29/17at 05:50; Start 07/29/17 at 06:00; Stop 07/29/17 at 07:59; Status DC Aspirin (Children'S Aspirin) 81 mg DAILY PO Last administered on 08/01/17at 08: 14; Start 07/29/17 at 09:00; Stop 08/01/17 at 13:04; Status DC Metoprolol Succinate (Toprol Xl) 50 mg DAILY PO Last administered on 08/01/17at 08:12; Start 07/29/17 at 09:00; Stop 08/01/17 at 13:04; Status DC Citalopram Hydrobromide (CeleXA) 10 mg DAILY PO Last administered on 07/30/17at 08:47; Start 07/29/17 at 09:00; Stop 08/01/17 at 13:04; Status DC Fish Oil (Fish Oil) 2,000 mg DAILY PO Last administered on 08/01/17at 08:13; Start 07/29/17 at 09:00; Stop 08/01/17 at 13:04; Status DC Furosemide (Lasix) 40 mg 1X ONCE IVP Last administered on 07/30/17at 10:54; Start 07/30/17 at 10:45; Stop 07/30/17 at 10:46; Status DC Potassium Chloride (Klor-Con) 20 meq 1X ONCE PO Last administered on at 10:55; Start 07/30/17 at 10:45; Stop 07/30/17 at 10:46; Status DC Magnesium Oxide (Magnesium Oxide) 400 mg DAILY PO Last administered on at 08:15; Start 07/30/17 at 10:45; Stop 08/01/17 at 13:04; Status DC Albuterol/ Ipratropium (Duoneb) 3 ml RTQID NEB Last administered on 08/01/17at 09:29; Start 07/30/17 at 12:00; Stop 08/01/17 at 13:04; Status DC Guaifenesin (MUCINEX ER with DM) 1 tab BID PO Last administered on 08/01/17at 08 :12; Start 07/30/17 at 21:00; Stop 08/01/17 at 13:04; Status DC Oseltamivir Phosphate (Tamiflu) 75 mg BID PO Last administered on 08/01/17at 08: 33; Start 07/30/17 at 22:00; Stop 08/01/17 at 08:34; Status DC Enoxaparin Sodium (Lovenox) 40 mg Q24H SQ Last administered on 08/01/17at 08:15 ; Start 07/31/17 at 08:00; Stop 08/01/17 at 13:04; Status DC Furosemide (Lasix) 40 mg 1X ONCE IVP Last administered on 07/31/17at 13:32; Start 07/31/17 at 13:15; Stop 07/31/17 at 13:16; Status DC Potassium Chloride (Klor-Con) 20 meq 1X ONCE PO Last administered on at 13:31; Start 07/31/17 at 13:15; Stop 07/31/17 at 13:16; Status DC Furosemide (Lasix) 20 mg DAILY PO Last administered on 08/01/17at 08:13; Start 08/01/17 at 09:00; Stop 08/01/17 at 13:04; Status DC Lisinopril (Prinivil) 2.5 mg DAILY PO Last administered on 08/01/17at 08:14; Start 08/01/17 at 09:00; Stop 08/01/17 at 13:04; Status DC Oseltamivir Phosphate (Tamiflu) 75 mg BID PO Last administered on 08/01/17at 08: 36; Start 08/01/17 at 09:00; Stop 08/01/17 at 13:04; Status DC Nystatin (Nystop) 1 joseph BID TP ; Start 08/01/17 at 10:30; Stop 08/01/17 at 13:04 ; Status DC Active Scripts Active Reported Aspirin 81 Mg Tab.chew 81 Mg PO DAILY Escitalopram Oxalate 5 Mg Tablet 5 Mg PO DAILY Metoprolol Succinate ( Xl ) (Metoprolol Succinate) 50 Mg Tab.er.24h 50 Mg PO DAILY Stedman 3-6-9 1,200 mg Softgel (Fish Oil/Borage/Flax/Om3,6,9#1) 1,200 Mg Capsule 2 ,400 Mg PO DAILY Patient Instructions Patient Instuctions DISCHARGE TO [facility]. KOFFI WING DO Aug 01, 2017 13:56
--- NOTE | 2017-08-04 22:03 | PN ---
DATE: 08/01/2017 SUBJECTIVE: The patient continues to have generalized weakness, but he denies chest pain, shortness of breath or palpitation, headache, vertigo, dysarthria, dysphagia, or paraesthesia. OBJECTIVE: GENERAL: The patient is a well-developed, well-nourished male, not in acute distress. VITAL SIGNS: Blood pressure 129/75, respiratory rate 19, pulse is 62 and regular, temperature 98.7, oxygen saturation 97% on 2 liters by nasal cannula. HEENT: Normocephalic, atraumatic, otherwise unremarkable. NECK: Supple. Negative for carotid bruit, lymphadenopathy or thyromegaly. LUNGS: With diminished breath sounds with mild scattered rales. No wheezing. CARDIOVASCULAR: Regular rhythm, normal S1, S2. There is no S3, S4, murmur. ABDOMEN: Soft. Bowel sounds are positive. No palpable mass, organomegaly or tenderness. EXTREMITIES: Positive for pitting edema. NEUROLOGIC: The patient is alert and oriented x 3. His speech is fluent. There is no language dysfunction. Cranial nerves are intact except for right homonymous hemianopsia. No focal motor or sensory deficit. The strength was 4/5 throughout. Sensory examination revealed normal pinprick and light touch senses throughout. Deep tendon reflexes were symmetric and hypoactive with absent Achilles responses bilaterally. Gait: The patient has unsteady stance. LABORATORY DATA: CBC revealed white blood cells of 5800, hemoglobin 14.7, hematocrit 42.5, platelet count 105,000. Chemistry revealed sodium of 142, potassium 3.6, chloride 105, CO2 is 33, BUN 20, creatinine 0.9, glucose is 95, calcium is 7.9. IMPRESSION: 1. Status post frequent falls, probably secondary to generalized weakness. 2. Pulmonary edema and mild congestive heart failure. 3. Obstructive sleep apnea, Influenza B and obesity. 4. 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 RECOMMENDATIONS: Continue with current management and medications; physical therapy as tolerated. M Kervin MALDONADO MD DR: MILLIE/yumiko JOB#: [id number] / [id number]
== END 2017-08-01 12:45 | disposition home or self-care (01) | DRG 291 ==
LOC: ER 03:38 → ICU 06:07
PROVIDERS: ADMIT Internal Medicine; ATTEND Internal Medicine
DX: I11.0 Hypertensive heart disease with heart failure (principal); J96.90 Respiratory failure, unspecified, unspecified whether with hypoxia or hypercapnia; J44.1 Chronic obstructive pulmonary disease with (acute) exacerbation; I69.351 Hemiplegia and hemiparesis following cerebral infarction affecting right dominant side; M54.5 Low back pain; N40.0 Benign prostatic hyperplasia without lower urinary tract symptoms; I69.398 Other sequelae of cerebral infarction; I50.33 Acute on chronic diastolic (congestive) heart failure; J10.1 Influenza due to other identified influenza virus with other respiratory manifestations; E87.6 Hypokalemia; G89.29 Other chronic pain; G47.33 Obstructive sleep apnea (adult) (pediatric); I48.0 Paroxysmal atrial fibrillation; E66.01 Morbid (severe) obesity due to excess calories; H53.461 Homonymous bilateral field defects, right side; Z96.643 Presence of artificial hip joint, bilateral; E83.42 Hypomagnesemia; M15.9 Polyosteoarthritis, unspecified; R29.6 Repeated falls; Z79.899 Other long term (current) drug therapy; Z88.2 Allergy status to sulfonamides; Z88.8 Allergy status to other drugs, medicaments and biological substances; Z79.82 Long term (current) use of aspirin; Z98.41 Cataract extraction status, right eye; Z98.42 Cataract extraction status, left eye; Z68.36 Body mass index [BMI] 36.0-36.9, adult; Z95.0 Presence of cardiac pacemaker
CPT/HCPCS: 36415; 36600; 51702; 70450; 71045; 80048; 80053; 80076; 81001; 82550; 82803; 83690; 83735; 83880; 84443; 84484; 85025; 85651; 86140; 87641; 87804; 93005; 93306; 94640; 94660; 96361; 96365; 96375; J1650; J1940; J3475; J7620; 97110; 97116; 97530; 99285-25; J7030

== ENCOUNTER 2017-09-24 09:41 | Inpatient (IN) | payer MEDICARE ==
[~2017-09-24] VITALS: Ht 182.9 cm; Wt 123.2 kg
[~2017-09-24 09:41] MED LIST changes: +ASPI-630 PO; +ESCITALOPRAM OXA5 MG PO
--- NOTE | 2017-09-24 10:16 | PHYS DOC ---
Past History Past Medical History: CHF, COPD, CVA, Hypertension Additional Past Medical Histor: generalized weakness, chronic back pain since age of 14 Past Surgical History: Pacemaker, Other Additional Past Surgical Histo: back surgery right foot surgery Alcohol Use: None Drug Use: None Adult General Chief Complaint Chief Complaint: MECHANICAL FALL HPI HPI he is a pleasant 87 showed male who is well-known to our facility with chronic back pain after fall from sitting today. Patient was in his normal state of health when he attempted to get up from bed this morning He slipped and fell landing on his coccyx this with chronic contact on the ground. He has no complaint of new numbness or tingling, new bilateral bladder incontinence, increased pain with range of motion is apparent. Patient's pain is now resolved after receiving IV fentanyl and route. Patient denies any chest pain, headache, neck pain, abdominal pain prior or after the fall. he did not lose consciousness, did not complain of any specific new complaints at this time. He complains no joint pain, complains of no limb pain and has no new lacerations or abrasions. Review of Systems Review of Systems Constitutional: Denies fever or chills [] Eyes: Denies change in visual acuity, redness, or eye pain [] HENT: Denies nasal congestion or sore throat [] Respiratory: Denies cough or shortness of breath [] Cardiovascular: No additional information not addressed in HPI [] GI: Denies abdominal pain, nausea, vomiting, bloody stools or diarrhea [] : Denies dysuria or hematuria [] Musculoskeletal: Patient has chronic back pain chronic peripheral edema Integument: Denies rash or skin lesions [] Neurologic: Denies headache, focal weakness or sensory changes [] Endocrine: Denies polyuria or polydipsia [] All other systems were reviewed and found to be within normal limits, except as documented in this note. Allergies Allergies Allergies Coded Allergies Type Severity Reaction Last Updated Verified Sulfa (Sulfonamide Antibiotics) Allergy Intermediate 06/20/16 Yes meperidine Allergy Intermediate 06/20/16 Yes promethazine Allergy Intermediate 06/20/16 Yes Physical Exam Physical Exam Other vital signs on the chart patient is satting at 92% on 2 L nasal cannulas. Constitutional: Well developed, well nourished, no acute distress, non-toxic appearance. [] HENT: Normocephalic, atraumatic, bilateral external ears normal, oropharynx dry mucous membranes with poor dentition oral lesions or bite awan, no oral exudates, nose normal. [] Eyes: PERRLA, EOMI, conjunctiva normal, no discharge. [] Neck: Normal range of motion, no tenderness, supple, no stridor. No midline tenderness to palpation no obvious signs of deformity[] Cardiovascular:Heart rate regular rhythm, no murmur [] Lungs & Thorax: Bilateral breath sounds clear to auscultation [] Abdomen: Bowel sounds normal, soft, no tenderness, no masses, no pulsatile masses. [] Skin: Patient has chronic vascular changes of his upper and lower extremity's. He is significant +3 pitting edema to the midthigh there are no new external awan of trauma. She has brisk capillary refill +2 over his arms and legs. Skin is warm Back: Patient's tenderness is reproducible over the lumbar spine L3 L4 L5 there is no obvious signs of, but there is midline tenderness. Extremities: No tenderness, no cyanosis, no clubbing, ROM intact, for age and is at baseline Neurologic: Alert and oriented X 3, normal motor function, normal sensory function, no focal deficits noted. [] EKG EKG [] Radiology/Procedures Radiology/Procedures [] [place] [address] IMAGING REPORT Signed PATIENT: CARLEY ROSALES ACCOUNT: [id number] : 1930 LOCATION: ER AGE: 87 SEX: M EXAM STATUS: REG ER ORD. PHYSICIAN: ELIANE ROSENTHAL MD REASON: fall PROCEDURE: CT HEAD AND CERVICAL SPINE WO PQRS Compliance Statement: One or more of the following individualized dose reduction techniques were utilized for this examination: 1. Automated exposure control 2. Adjustment of the mA and/or kV according to patient size 3. Use of iterative reconstruction technique CT head and cervical spine without contrast 09/24/2017 10:[address] lumbar spine without contrast INDICATION: Fall today. COMPARISON: CT head July 29, 2017 TECHNIQUE: Multiple axial CT images of the head were obtained from skull base through the vertex without intravenous contrast. Multiple axial CT images of the cervical spine were obtained without intravenous contrast. Coronal and sagittal reformats are provided. Multiple axial CT images of the lumbar spine were obtained without intravenous contrast. Coronal and sagittal reformats are provided. FINDINGS: Head: Ventricles, sulci and basal cisterns are prominent compatible with generalized cerebral volume loss. Remote infarct is noted in the left cerebellum with associated encephalomalacia. Remote lacunar infarct is noted in the left thalamus. Remote infarct is noted in the left occipital lobe. Low-attenuation in the periventricular white matter is suggestive of chronic small vessel ischemic changes.. There is no hydrocephalus. Alejandro-white matter differentiation is normal. There is no acute intracranial hemorrhage. There is no mass, mass effect or midline shift. Posterior fossa is normal in appearance. Visualized portions of the orbits are normal with exception of bilateral lens replacement. Mild mucosal thickening involving the maxillary sinuses and anterior ethmoid air cells is noted. Mastoid air cells are well aerated. Scalp and calvaria are normal. Cervical spine: Alignment of the cervical spine is normal. Skull base is intact. Craniocervical junction is normal in appearance. Atlantoaxial articulation is normal. Vertebral body heights are maintained without evidence for acute fracture. There is mild multilevel disc height loss. There is advanced left facet arthropathy at C4-C5 with otherwise mild to moderate multilevel facet arthropathy. There is mild multilevel uncovertebral joint disease. There is severe left neuroforaminal stenosis at C4-C5. There is moderate bilateral neuroforaminal stenosis at C5-C6 and C6-7. Transverse foramen are intact. There is no prevertebral soft tissue swelling. Thyroid gland is normal in appearance. Visualized portions of the lung apices are normal without evidence for suspicious pulmonary nodule or infiltrate. Lumbar spine: There is minimal retrolisthesis of L2 on L3. 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 There is advanced disc height loss at L5-S1 with endplate sclerosis. Anterior marginal osteophytosis is identified at L1-L2, L2-L3 and L3-L4. There may be mild height loss at T11 secondary to superior endplate Schmorl's node. No acute fracture is suspected. Sacroiliac joints appear well aligned. Visualized portions of the sacrum are intact. 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 There is a 3 mm nonobstructing calculus in the midpole of the right kidney. There is no hydronephrosis. L1-L2: There is a circumferential disc bulge. There is mild facet arthropathy. There is mild bilateral neuroforaminal stenosis. No spinal canal stenosis. L2-L3: There is a circumferential disc bulge. There is mild to moderate facet arthropathy. There is moderate bilateral neuroforaminal stenosis. There is mild spinal canal stenosis. L3-L4: There is a circumferential disc bulge. There is severe facet arthropathy with ligamentum flavum infolding. There is moderate right and severe left neuroforaminal stenosis. There is moderate osseous spinal canal stenosis. L4-L5: There is a circumferential disc bulge with severe facet arthropathy. There is severe left and moderate to severe right neuroforaminal stenosis. There is severe spinal canal stenosis. L5-S1: There is a circumferential disc bulge. There is moderate facet arthropathy. There is moderate bilateral neuroforaminal stenosis. No spinal canal stenosis. IMPRESSION: 1. No acute intracranial hemorrhage. Stable appearance of remote infarcts involving the left cerebellum, left occipital lobe and left thalamus. 2. No acute fracture or malalignment of the cervical spine. There is mild to moderate cervical spondylosis. 3. No acute fracture of the lumbar spine. Moderate degenerative changes of the lumbar spine are present, as detailed above. 4. 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 Consultation with vascular surgeon is recommended. Electronically signed by: Hoa Carroll MD (09/24/2017 10:52 AM) [id number] DICTATED AND SIGNED BY: HOA CARROLL MD DATE: 09/24/171040 CC: JARET GLYNN MD; ELIANE ROSENTHAL MD ~ [address] [address] IMAGING REPORT Signed PATIENT: CARLEY ROSALES ACCOUNT: [id number] : 1930 LOCATION: ER AGE: 87 SEX: M EXAM STATUS: REG ER ORD. PHYSICIAN: ELIANE ROSENTHAL MD REASON: fall PROCEDURE: CT LUMBAR SPINE WO CONTRAST PQRS Compliance Statement: One or more of the following individualized dose reduction techniques were utilized for this examination: 1. Automated exposure control 2. Adjustment of the mA and/or kV according to patient size 3. Use of iterative reconstruction technique CT head and cervical spine without contrast 09/24/2017 10:[address] lumbar spine without contrast INDICATION: Fall today. COMPARISON: CT head July 29, 2017 TECHNIQUE: Multiple axial CT images of the head were obtained from skull base through the vertex without intravenous contrast. Multiple axial CT images of the cervical spine were obtained without intravenous contrast. Coronal and sagittal reformats are provided. Multiple axial CT images of the lumbar spine were obtained without intravenous contrast. Coronal and sagittal reformats are provided. FINDINGS: Head: Ventricles, sulci and basal cisterns are prominent compatible with generalized cerebral volume loss. Remote infarct is noted in the left cerebellum with associated encephalomalacia. Remote lacunar infarct is noted in the left thalamus. Remote infarct is noted in the left occipital lobe. Low-attenuation in the periventricular white matter is suggestive of chronic small vessel ischemic changes.. There is no hydrocephalus. Alejandro-white matter differentiation is normal. There is no acute intracranial hemorrhage. There is no mass, mass effect or midline shift. Posterior fossa is normal in appearance. Visualized portions of the orbits are normal with exception of bilateral lens replacement. Mild mucosal thickening involving the maxillary sinuses and anterior ethmoid air cells is noted. Mastoid air cells are well aerated. Scalp and calvaria are normal. Cervical spine: Alignment of the cervical spine is normal. Skull base is intact. Craniocervical junction is normal in appearance. Atlantoaxial articulation is normal. Vertebral body heights are maintained without evidence for acute fracture. There is mild multilevel disc height loss. There is advanced left facet arthropathy at C4-C5 with otherwise mild to moderate multilevel facet arthropathy. There is mild multilevel uncovertebral joint disease. There is severe left neuroforaminal stenosis at C4-C5. There is moderate bilateral neuroforaminal stenosis at C5-C6 and C6-7. Transverse foramen are intact. There is no prevertebral soft tissue swelling. Thyroid gland is normal in appearance. Visualized portions of the lung apices are normal without evidence for suspicious pulmonary nodule or infiltrate. Lumbar spine: There is minimal retrolisthesis of L2 on L3. 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 There is advanced disc height loss at L5-S1 with endplate sclerosis. Anterior marginal osteophytosis is identified at L1-L2, L2-L3 and L3-L4. There may be mild height loss at T11 secondary to superior endplate Schmorl's node. No acute fracture is suspected. Sacroiliac joints appear well aligned. Visualized portions of the sacrum are intact. 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 There is a 3 mm nonobstructing calculus in the midpole of the right kidney. There is no hydronephrosis. L1-L2: There is a circumferential disc bulge. There is mild facet arthropathy. There is mild bilateral neuroforaminal stenosis. No spinal canal stenosis. L2-L3: There is a circumferential disc bulge. There is mild to moderate facet arthropathy. There is moderate bilateral neuroforaminal stenosis. There is mild spinal canal stenosis. L3-L4: There is a circumferential disc bulge. There is severe facet arthropathy with ligamentum flavum infolding. There is moderate right and severe left neuroforaminal stenosis. There is moderate osseous spinal canal stenosis. L4-L5: There is a circumferential disc bulge with severe facet arthropathy. There is severe left and moderate to severe right neuroforaminal stenosis. There is severe spinal canal stenosis. L5-S1: There is a circumferential disc bulge. There is moderate facet arthropathy. There is moderate bilateral neuroforaminal stenosis. No spinal canal stenosis. IMPRESSION: 1. No acute intracranial hemorrhage. Stable appearance of remote infarcts involving the left cerebellum, left occipital lobe and left thalamus. 2. No acute fracture or malalignment of the cervical spine. There is mild to moderate cervical spondylosis. 3. No acute fracture of the lumbar spine. Moderate degenerative changes of the lumbar spine are present, as detailed above. 4. 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 Consultation with vascular surgeon is recommended. Electronically signed by: Hoa Carroll MD (09/24/2017 10:52 AM) [id number] DICTATED AND SIGNED BY: HOA CARROLL MD DATE: 09/24/17 1041 CC: JARET GLYNN MD; ELIANE ROSENTHAL MD ~ Course & Med Decision Making Course & Med Decision Making Pertinent Labs and Imaging studies reviewed. (See chart for details) []Patient has a history of chronic lower back pain and a seated from standing position while climbing out of bed, at this point patient has reproducible pain on physical exam is lumbar spine which somewhat considered a distracting injury. His head and neck will also be imaged given the fact he said prior stroke, patient is hard of hearing, and has considerable back pain, both by history and by physical exam I will image this patient's lower back as well. Patient is not having any other complaints of shortness of breath, chest pain, abdominal pain or other focal neurologic deficits his neurologic examination is at baseline. he is pain-free at this time after receiving 50 mg of fentanyl by EMS in route. CRAFTI Cauda Equina Renal Stone AAA ruptured Fracture Tumor (TB, metastatic disease) Infection UTI, pyelonephritis, epidural abscess. Patient's spine symptoms have stabilized while they have been evaluated in the department and are appropriate for outpatient work up. No evidence of cauda equina, cord compression, infiltrative, or infectious etiology. Dragon Disclaimer Dragon Disclaimer This electronic medical record was generated, in whole or in part, using a voice recognition dictation system. Departure Departure: Impression: Primary Impression: Back pain Additional Impressions: Chronic back pain Accident due to mechanical fall without injury Disposition: 01 HOME, SELF-CARE Condition: STABLE Referrals: JARET GLYNN MD (PCP) Patient Instructions: Back Pain, Adult, Chronic Back Pain, Fall Prevention and Home Safety Additional Instructions: discharge: I've spoken with the patient and/or caregivers. I've explained the patient's condition, diagnosis and treatment plan based on information available to me at this time. I've answered the patient's and/or caregivers questions and addressed any concerns. The patient and/or caregivers have a good understanding the patient's diagnosis, condition and treatment plan as can be expected at this point. Vital signs have been stabilized. The patient's condition is stable for discharge from the emergency department. The patient will pursue further outpatient evaluation with her primary care provider or other designated consulting physician as outlined in the discharge instructions. Patient and/or caregivers are agreeable to this plan of care and follow-up instructions have been explained in detail. The patient and/or caregivers have received these instructions in written format and expressed understanding of these discharge instructions. The patient and her caregivers are aware that if any significant change in condition or worsening of symptoms should prompt him to immediately return to this of the closest emergency department. If an emergent department is not readily available I would encourage him to call 911. Scripts Acetaminophen (TYLENOL) 325 Mg Tablet 1-2 TAB PO QID, #30 TAB 2 Refills Prov: ELIANE ROSENTHAL MD 09/24/17 Problem Qualifiers ELIANE ROSENTHAL MD Sep 24, 2017 10:16
--- NOTE | 2017-09-24 10:55 | RAD ---
PQRS Compliance Statement: One or more of the following individualized dose reduction techniques were utilized for this examination: 1. Automated exposure control 2. Adjustment of the mA and/or kV according to patient size 3. Use of iterative reconstruction technique CT head and cervical spine without contrast 09/24/2017 10:[address] lumbar spine without contrast INDICATION: Fall today. COMPARISON: CT head July 29, 2017 TECHNIQUE: Multiple axial CT images of the head were obtained from skull base through the vertex without intravenous contrast. Multiple axial CT images of the cervical spine were obtained without intravenous contrast. Coronal and sagittal reformats are provided. Multiple axial CT images of the lumbar spine were obtained without intravenous contrast. Coronal and sagittal reformats are provided. FINDINGS: Head: Ventricles, sulci and basal cisterns are prominent compatible with generalized cerebral volume loss. Remote infarct is noted in the left cerebellum with associated encephalomalacia. Remote lacunar infarct is noted in the left thalamus. Remote infarct is noted in the left occipital lobe. Low-attenuation in the periventricular white matter is suggestive of chronic small vessel ischemic changes.. There is no hydrocephalus. Alejandro-white matter differentiation is normal. There is no acute intracranial hemorrhage. There is no mass, mass effect or midline shift. Posterior fossa is normal in appearance. Visualized portions of the orbits are normal with exception of bilateral lens replacement. Mild mucosal thickening involving the maxillary sinuses and anterior ethmoid air cells is noted. Mastoid air cells are well aerated. Scalp and calvaria are normal. Cervical spine: Alignment of the cervical spine is normal. Skull base is intact. Craniocervical junction is normal in appearance. Atlantoaxial articulation is normal. Vertebral body heights are maintained without evidence for acute fracture. There is mild multilevel disc height loss. There is advanced left facet arthropathy at C4-C5 with otherwise mild to moderate multilevel facet arthropathy. There is mild multilevel uncovertebral joint disease. There is severe left neuroforaminal stenosis at C4-C5. There is moderate bilateral neuroforaminal stenosis at C5-C6 and C6-7. Transverse foramen are intact. There is no prevertebral soft tissue swelling. Thyroid gland is normal in appearance. Visualized portions of the lung apices are normal without evidence for suspicious pulmonary nodule or infiltrate. Lumbar spine: There is minimal retrolisthesis of L2 on L3. 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 There is advanced disc height loss at L5-S1 with endplate sclerosis. Anterior marginal osteophytosis is identified at L1-L2, L2-L3 and L3-L4. There may be mild height loss at T11 secondary to superior endplate Schmorl's node. No acute fracture is suspected. Sacroiliac joints appear well aligned. Visualized portions of the sacrum are intact. 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 There is a 3 mm nonobstructing calculus in the midpole of the right kidney. There is no hydronephrosis. L1-L2: There is a circumferential disc bulge. There is mild facet arthropathy. There is mild bilateral neuroforaminal stenosis. No spinal canal stenosis. L2-L3: There is a circumferential disc bulge. There is mild to moderate facet arthropathy. There is moderate bilateral neuroforaminal stenosis. There is mild spinal canal stenosis. L3-L4: There is a circumferential disc bulge. There is severe facet arthropathy with ligamentum flavum infolding. There is moderate right and severe left neuroforaminal stenosis. There is moderate osseous spinal canal stenosis. L4-L5: There is a circumferential disc bulge with severe facet arthropathy. There is severe left and moderate to severe right neuroforaminal stenosis. There is severe spinal canal stenosis. L5-S1: There is a circumferential disc bulge. There is moderate facet arthropathy. There is moderate bilateral neuroforaminal stenosis. No spinal canal stenosis. IMPRESSION: 1. No acute intracranial hemorrhage. Stable appearance of remote infarcts involving the left cerebellum, left occipital lobe and left thalamus. 2. No acute fracture or malalignment of the cervical spine. There is mild to moderate cervical spondylosis. 3. No acute fracture of the lumbar spine. Moderate degenerative changes of the lumbar spine are present, as detailed above. 4. 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 Consultation with vascular surgeon is recommended. Electronically signed by: Fara Lowery MD (09/24/2017 10:52 AM) [id number]
[2017-09-24] MEDS ORDERED: ACET325T9 PO (11:12)
[2017-09-24] MEDS ORDERED: IV NORMAL SALINE 1,000ML 1,000 ML IV SCH (11:57)
[2017-09-24] MEDS ORDERED: ACETAMINOPHEN 325 MG TABLET PO PRN (12:00)
[2017-09-24] MEDS ORDERED: ONDANSETRON PF 4 MG/2 ML VIAL. IV PRN (12:00)
[2017-09-24 12:24] LABS: BASO # 0.1 x10^3/uL (0.0-0.2); BASO % 1 % (0-3); EOS % 0 % (0-3); HEMATOCRIT 47.3 % (39.0-53.0); HEMOGLOBIN 15.8 g/dL (13.0-17.5); LYMPH # 1.4 x10^3/uL (1.0-4.8); LYMPH % 19 % (24-48); MEAN CORPUSCULAR HEMOGLOBIN 31 pg (25-35); MEAN CORPUSCULAR HGB CONC 33 g/dL (31-37); MEAN CORPUSCULAR VOLUME 94 fL (79-100); MONO # 0.6 x10^3/uL (0.0-1.1); MONO % 9 % (0-9); NEUT # 5.2 x10^3uL (1.8-7.7); NEUT % 72 % (31-73); PLATELET COUNT 207 x10^3/uL (140-400); RED BLOOD COUNT 5.03 x10^6/uL (4.30-5.70); RED CELL DISTRIBUTION WIDTH 16.6 % (11.5-14.5); WHITE BLOOD COUNT 7.3 x10^3/uL (4.0-11.0)
--- NOTE | 2017-09-24 12:25 | EKG ---
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
[2017-09-24 13:10] LABS: ALBUMIN 3.2 g/dL (3.4-5.0); CALCIUM 8.6 mg/dL (8.5-10.1); DIRECT BILIRUBIN 0.4 mg/dL (0.0-0.2); GFR 70.8; MAGNESIUM 1.9 mg/dL (1.8-2.4); POTASSIUM 3.6 mmol/L (3.5-5.1); TOTAL PROTEIN 6.4 g/dL (6.4-8.2)
[2017-09-24] MEDS ORDERED: traMADol 50 MG TABLET PO PRN (13:15)
[2017-09-24 14:23] VITALS: BP 142/89
[2017-09-24] MEDS ORDERED: MAGN400C PO (15:15)
[2017-09-24] MEDS ORDERED: LISI2.5T PO (15:15)
[2017-09-24] MEDS ORDERED: CITA20TA5 PO (15:15)
[2017-09-24] MEDS ORDERED: FURO40TA4 PO (15:15)
[2017-09-24 19:04] LABS: BILIRUBIN,URINE NEG (NEG); CLARITY,URINE HAZY; COLOR,URINE AMBER; GLUCOSE,URINE NEG (NEG); NITRITE,URINE POS (NEG); UROBILINOGEN,URINE 1 mg/dL (0.2 mg/dL)
[2017-09-24 19:05] LABS: BACTERIA,URINE FEW /HPF (0-FEW); HYALINE CASTS, URINE OCC /HPF; SQUAMOUS EPITHELIAL CELL,UR FEW /LPF; WBC,URINE OCC /HPF (0-4)
[2017-09-24 19:35] VITALS: BP 126/76
[2017-09-24 23:13] VITALS: BP 131/78
[2017-09-25 06:06] VITALS: BP 145/90
[2017-09-25 07:01] LABS: BASO % 0 % (0-3); EOS # 0.2 x10^3/uL (0.0-0.7); EOS % 3 % (0-3); HEMATOCRIT 42.2 % (39.0-53.0); HEMOGLOBIN 14.1 g/dL (13.0-17.5); LYMPH # 2.4 x10^3/uL (1.0-4.8); LYMPH % 36 % (24-48); MEAN CORPUSCULAR HEMOGLOBIN 31 pg (25-35); MEAN CORPUSCULAR HGB CONC 34 g/dL (31-37); MEAN CORPUSCULAR VOLUME 93 fL (79-100); MONO # 1.2 x10^3/uL (0.0-1.1); MONO % 18 % (0-9); NEUT # 2.9 x10^3uL (1.8-7.7); NEUT % 44 % (31-73); PLATELET COUNT 150 x10^3/uL (140-400); RED BLOOD COUNT 4.54 x10^6/uL (4.30-5.70); RED CELL DISTRIBUTION WIDTH 16.2 % (11.5-14.5); WHITE BLOOD COUNT 6.6 x10^3/uL (4.0-11.0)
[2017-09-25 07:22] LABS: ALBUMIN 2.7 g/dL (3.4-5.0); CALCIUM 8.2 mg/dL (8.5-10.1); CREATININE 0.8 mg/dL (0.7-1.3); GFR 91.7; POTASSIUM 3.3 mmol/L (3.5-5.1); TOTAL BILIRUBIN 1.1 mg/dL (0.2-1.0); TOTAL PROTEIN 5.5 g/dL (6.4-8.2)
[2017-09-25] MEDS ORDERED: METOPROLOL SUCC 24HR ER 50 MG TAB.ER.24H. PO SCH (09:00)
[2017-09-25] MEDS ORDERED: MAGNESIUM OXIDE 400 MG TABLET PO SCH (09:00)
[2017-09-25] MEDS ORDERED: FUROSEMIDE 40 MG TABLET PO SCH (09:00)
[2017-09-25] MEDS ORDERED: OMEGA-3 FATTY ACIDS/FISH OIL 1,000 MG CAPSULE. PO SCH (09:00)
[2017-09-25] MEDS ORDERED: LISINOPRIL 2.5 MG TABLET PO SCH (09:00)
[2017-09-25] MEDS ORDERED: ASPIRIN 81 MG TAB.CHEW PO SCH (09:00)
[2017-09-25] MEDS ORDERED: CITALOPRAM 20 MG TABLET. PO SCH (09:00)
--- NOTE | 2017-09-25 10:02 | CONS ---
DATE OF CONSULTATION: 09/24/2017 REFERRING PHYSICIAN: Dr. Almodovar. REASON FOR CONSULTATION: Frequent falls and lower back pain. HISTORY OF PRESENT ILLNESS: This is an 87-year-old very pleasant male, who was admitted to Emergency Room after he presented with chief complaint of frequent falls and chronic lower back pain. According to the patient, he sustained a fall today while he was trying to get out from bed. This morning, he slipped and fell backwards, landed on his "____." Subsequently he started experiencing severe localized lower back pain. The patient stated he has had chronic radicular lower back pain radiating into the lower extremities and sometimes associated with numbness and paresthesia. Today he stated he did fall, but he did not hit his head or lose his consciousness. He denies bowel or bladder dysfunctions. The patient has been suffering from imbalance and he related that to the old stroke. He has had 3 falls in the last 3 years. Currently, he denies headaches, visual disturbances, nausea, vomiting, chest pain, shortness of breath or palpitation, dysarthria, dysphagia or vertigo. Initial nonenhanced head CT scan revealed no evidence of acute intracranial process, but it showed old left cerebellar infarct, left occipital infarct, and left thalamic infarct. PAST MEDICAL HISTORY: Significant for obesity, chronic lower back pain secondary to degenerative disk disease at multiple levels, history of stroke as described above, COPD, congestive heart failure, and hypertension along with generalized weakness, TIA, history of atrial fibrillation, sleep apnea, benign prostate hypertrophy, depression, skin cancer. PAST SURGICAL HISTORY: Significant for lower back spine surgery, status post pacemaker placement. FAMILY HISTORY: His father had emphysema and mother had cancer. SOCIAL HISTORY: The patient lives independently at home. He denies smoking, alcohol drinking, or illicit drug use. CURRENT HOME MEDICATIONS: Tylenol, aspirin, Celexa, lisinopril, furosemide, magnesium oxide, fish oil, and metoprolol. ALLERGIES: SULFONAMIDE ANTIBIOTICS, ____ AND PROMETHAZINE. REVIEW OF SYSTEMS: A 10-point review of system was performed as mentioned above in history of present illness, presented with chronic lower back pain, which has been improved since admission by given fentanyl intravenously, obstructive sleep apneas, intermittent numbness, and paresthesia of the lower extremities. Otherwise, as mentioned above in history of present illness. PHYSICAL EXAMINATION: GENERAL: Obese, white male, not in acute distress. He weighs 270 pounds. VITAL SIGNS: Blood pressure 126/76, respiratory rate 18, pulse is 61, temperature is 98.3, oxygen saturation 90% on room air. HEENT: Normocephalic, atraumatic, otherwise unremarkable. NECK: Supple. Negative for carotid bruit, lymphadenopathy, JVD, or thyromegaly. LUNGS: Clear to A and P. CARDIOVASCULAR: Regular rhythm, normal S1, S2. ABDOMEN: Soft. Bowel sounds positive. EXTREMITIES: Negative for cyanosis, clubbing, or pitting edema. NEUROLOGICAL: Mental Status: The patient is alert and oriented x 2. The speech is fluent. There is no language dysfunction. Memory, judgment, and abstracting thinking are fair. The patient denies hallucination or delusion. CRANIAL NERVES: The pupils are equal and reactive to light and accommodation. The extraocular movements are intact. There is no nystagmus. Visual young revealed evidence of right homonymous hemianopsia secondary to old stroke. Hearing is diminished bilaterally. The palate is elevated symmetrically. Sternocleidomastoid muscles are powerful bilaterally. The patient shrugs his shoulders symmetrically, protrudes his tongue in the midline without fasciculation or atrophy. MOTOR: No focal muscle bulk was seen. The tone is normal. The strength is 4/5 throughout. Sensory examination revealed normal pinprick, light touch, vibratory and position senses. Deep tendon reflexes were symmetric and hypoactive with absent Achilles responses. Gait not tested at this time. DIAGNOSTIC DATA: Initial nonenhanced head CT scan revealed evidence of multiple old infarcts in the left cerebellum, left thalamus, and left occipital region as described above. Otherwise, no acute intracranial process. CT of the cervical spine and lumbosacral spine revealed evidence of degenerative disk disease at multiple levels. LABORATORY DATA: CBC revealed white blood cells of 7300, hemoglobin 15.8, hematocrit 47.3, platelet count 207,000. Chemistry revealed sodium 141, potassium 3.6, chloride 104, CO2 of 30, BUN 18, creatinine 1, glucose 106, calcium 8.6. Liver enzymes are normal with elevated total bilirubin and direct bilirubin. Troponin level is normal. NPB is high at 2202. Urinalysis is negative for urinary tract infections. IMPRESSION: 1. Status post fall resulted in low back pain - improved by fentanyl intravenously. 2. History of chronic lower back pain status post lumbosacral spine surgery. 3. Impaired balance secondary to previous stroke versus right homonymous hemianopsia. 4. Multiple medical problems include obesity, obstructive sleep apnea, hypertension, COPD, congestive heart failure, and depressions. RECOMMENDATIONS: 1. Continue with current home medications and management initiated by Dr. Almodovar. 2. Physical therapy as tolerated. 3. Aggressive weight loss program. M Kervin MALDONADO MD DR: MILLIE/nts JOB#: [id number] / [id number]
[2017-09-25 11:10] VITALS: BP 110/66
--- NOTE | 2017-09-25 14:28 | SSS ---
ADMIT DATE: 09/25/2017 HISTORY OF PRESENT ILLNESS: The patient is an 87-year-old male patient, resident at an independent living of [facility], who apparently has chronic back pain after a fall from sitting. He apparently was in normal state of health when he attempted to get up from bed and slipped, fell landing on his coccyx. He denied any new numbness or tingling. No bowel or bladder incontinence. His pain is worse with movement. However by the time he received IV fentanyl, his pain has completely resolved. Given that he and his live in independent living and she cannot take care of him, a decision was made to admit him to correction facility with the plan is for him to perhaps consider either transferring to assisted living and/or long-term care. PAST MEDICAL HISTORY: Significant for chronic obstructive pulmonary disease, hypertension. He apparently has 3 strokes; one 13 years ago, one 12 years ago and one 1 year ago. The patient did not have any residual deficits and has been ambulating with a walker. Other medical problems include congestive heart failure, most likely due to left ventricular systolic dysfunction; benign prostatic hypertrophy; generalized osteoarthritis as well as morbid obesity and obstructive sleep apnea. PAST SURGICAL HISTORY: Significant for bilateral hip replacement, back surgery, carpal tunnel release and bilateral cataract extraction. ALLERGIES: He is allergic to SULFA DRUGS, MEPERIDINE and PROMETHAZINE. FAMILY HISTORY: Noncontributory. SOCIAL HISTORY: He is and lives with his . He apparently does not smoke, drink alcohol or use any recreational drugs. REVIEW OF SYSTEMS: As per history of present illness. MEDICATIONS: He is currently on following medications: He is on metoprolol succinate 50 mg once a day, lisinopril 2.5 mg once a day, aspirin 81 mg once a day, citalopram hydrobromide 20 mg once a day, furosemide 40 mg daily, magnesium oxide 400 mg once a day, and fish oil 2 capsules once a day. REVIEW OF SYSTEMS: As per history of present illness. PHYSICAL EXAMINATION GENERAL: When I examined him this afternoon, he was sitting comfortably in his recliner, in no apparent respiratory distress. There is no pallor, jaundice, cyanosis or thyromegaly. No jugular distention. Mild bilateral lower limb edema. VITAL SIGNS: His heart rate was 64, blood pressure 110/66, temperature was 97.7, respiratory rate was 20, and oxygen saturation was 92%. HEAD, EYES, EARS, NOSE, AND THROAT: Showed normocephalic, atraumatic. NECK: Supple. HEART: Showed normal first and second heart sounds. No gallop, rub or murmur. CHEST: Clear to auscultation. No crepitation or rhonchi. ABDOMEN: Distended, soft, nontender. NEUROLOGIC: He is awake, alert, responding appropriately. Cranial nerves intact. EXTREMITIES: He moves extremities without difficulty. He ambulates with a walker with standby assist. LABORATORY DATA: This morning showed a white cell count of 6600, hemoglobin 14, hematocrit 42, MCV 93 and platelet count of 150,000. His chemistry showed a serum sodium 139, potassium 3.3, chloride 106, bicarbonate 27, anion gap of 6, BUN 18, creatinine 0.8, estimated GFR was 92 mL per minute. His glucose was 93, calcium was 8.2. Total bilirubin, AST, ALT, alkaline phosphatase were normal. Total protein was 5.5, albumin was 2.7. Urinalysis was essentially unremarkable. His nasal screen for MRSA by PCR was negative, and his CT scan of the head and cervical spine as well as lumbar spine without contrast showed that there is no intracranial hemorrhage, stable appearance of remote infarcts involving the left cerebellum and left occipital lobe and left thalamus. No acute fracture or malalignment of cervical spine. There is mild to moderate cervical spondylosis. No acute fracture of the lumbar spine. There are moderate degenerative changes of the lumbar spine are present. 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 ASSESSMENT AND PLAN: The patient will be discharged to [facility] for further rehabilitation. Ultimately might require either a transfer to assisted living and/or long-term care. FINAL DISCHARGE DIAGNOSIS: Declining cognitive and functional ability. Other medical problems obviously chronic obstructive pulmonary disease, morbid obesity, hypertension, multiple strokes. LIS SAMANIEGO MD DR: ARABELLA/yumiko JOB#: [id number] / [id number]
== END 2017-09-25 15:30 | DRG 552 ==
LOC: ER 09:41 → 1 SOUTH 11:55
PROVIDERS: ADMIT Internal Medicine; ATTEND Internal Medicine
DX: M54.5 Low back pain (principal); E66.01 Morbid (severe) obesity due to excess calories; I11.0 Hypertensive heart disease with heart failure; I48.91 Unspecified atrial fibrillation; I50.22 Chronic systolic (congestive) heart failure; R41.81 Age-related cognitive decline; W01.0XXA Fall on same level from slipping, tripping and stumbling without subsequent striking against object, initial encounter; G47.33 Obstructive sleep apnea (adult) (pediatric); G89.29 Other chronic pain; J44.9 Chronic obstructive pulmonary disease, unspecified; M15.9 Polyosteoarthritis, unspecified; N40.0 Benign prostatic hyperplasia without lower urinary tract symptoms; R29.6 Repeated falls; F32.9 Major depressive disorder, single episode, unspecified; Z96.643 Presence of artificial hip joint, bilateral; R62.7 Adult failure to thrive; Z80.9 Family history of malignant neoplasm, unspecified; Z82.5 Family history of asthma and other chronic lower respiratory diseases; Z85.828 Personal history of other malignant neoplasm of skin; Z86.73 Personal history of transient ischemic attack (TIA), and cerebral infarction without residual deficits; Z95.0 Presence of cardiac pacemaker; Z98.41 Cataract extraction status, right eye; Z98.42 Cataract extraction status, left eye; Z68.36 Body mass index [BMI] 36.0-36.9, adult; Z88.2 Allergy status to sulfonamides; Z88.8 Allergy status to other drugs, medicaments and biological substances; Y93.89 Activity, other specified; Y92.89 Other specified places as the place of occurrence of the external cause; Y99.8 Other external cause status
CPT/HCPCS: 36415; 70450; 72125; 72131; 80048; 80053; 80076; 81001; 83690; 83735; 83880; 84484; 85025; 87086; 87641; 93005; 97535; 99285-25

== ENCOUNTER → 2017-11-14 | Outpatient (CLI) | payer MEDICARE ==
[~2017-11-14] MED LIST changes: +ACET325T9 PO; +CITA20TA6 PO; +FURO40TA4 PO; +LISI2.5T PO; +MAGN400C PO
--- NOTE | 2017-11-14 12:24 | RAD ---
History: Urinary frequency. Evaluate post void residual volume. Comparison: None. Findings: Ultrasound imaging was performed of the urinary bladder. Prevoid bladder volume is estimated at 176 mL. The post void residual bladder volume is 104 mL. No focal bladder wall abnormality is identified. Prostate is mildly enlarged with dimensions of 3.5 x 4.4 x 4.1 cm. Impression: Post void bladder volume is estimated at 0.14 mL. Electronically signed by: Moose Danielle MD (11/14/2017 12:21 PM) [place] [id number]
== END | disposition home or self-care (01) ==
LOC: US 10:35
PROVIDERS: ATTEND Family Medicine
DX: N39.41 Urge incontinence (principal); R35.0 Frequency of micturition
CPT/HCPCS: 76857

== ENCOUNTER 2017-11-21 10:31 | Emergency (ER) | payer MEDICARE ==
[~2017-11-21] VITALS: Ht 182.9 cm; Wt 133.6 kg
[2017-11-21 10:49] VITALS: BP 148/88
--- NOTE | 2017-11-21 11:24 | ED.ADGEN ---
Past History Past Medical History: CHF, COPD, CVA, Hypertension Additional Past Medical Histor: generalized weakness, chronic back pain since age of 14 Past Surgical History: Pacemaker, Other Additional Past Surgical Histo: back surgery right foot surgery Alcohol Use: None Drug Use: None Adult General Chief Complaint Chief Complaint Left hip pain HPI HPI Patient is a 67-year-old male currently enrolled at [facility] for rehabilitation who presents with accidental fall from standing while using his walker, left hip pain. Patient states his walker caught last evening causing him to fall landing on his left hip and rolling backwards and hitting his posterior scalp. Patient was able to stand after falling has been weightbearing since. Denies dizziness lightheadedness headache, neck pain. Reports residual scalp tenderness, no abrasions or contusions or lacerations noted. Patient is not currently on anticoagulation therapy. Reports minor left hip pain has previous left total hip prosthesis. Patient's been unable to her without difficulty this morning. States he was instructed by rehabilitation to go to the hospital for evaluation. Arrives by private vehicle with family members. No other acute symptoms or complaints. Review of Systems Review of Systems Review symptoms as per history of present illness. All other review symptoms are negative. [] All other systems were reviewed and found to be within normal limits, except as documented in this note. Allergies Allergies Allergies Coded Allergies Type Severity Reaction Last Updated Verified Sulfa (Sulfonamide Antibiotics) Allergy Intermediate 06/20/16 Yes meperidine Allergy Intermediate 06/20/16 Yes promethazine Allergy Intermediate 06/20/16 Yes Physical Exam Physical Exam Constitutional: Well developed, well nourished, no acute distress. [] HENT: Normocephalic, atraumatic, bilateral external ears normal, oropharynx moist, nose normal. [] Eyes: PERRLA, EOMI, conjunctiva normal. [] Neck: Normal range of motion, no midline tenderness. [] Cardiovascular:Heart rate regular rhythm, no murmur [] Lungs & Thorax: Bilateral breath sounds clear to auscultation [] Abdomen: Bowel sounds normal, soft, no tenderness. [] Skin: Warm, dry. [] Back: No tenderness. [] Extremities: left Hip, full range of motion, mild left lateral hip pain with range of motion tenderness on palpation.[] Neurologic: Alert and oriented X 3, normal motor function, normal sensory function, no focal deficits noted. [] Psychologic: Affect normal, judgement normal, mood normal. [] Current Patient Data Vital Signs Vital Signs Date Time Temp Pulse Resp B/P (MAP) Pulse Ox O2 Delivery O2 Flow Rate FiO2 11/21/17 10:49 98.7 80 18 97 Room Air EKG EKG [] Radiology/Procedures Radiology/Procedures [] Course & Med Decision Making Course & Med Decision Making Pertinent Labs and Imaging studies reviewed. (See chart for details) [Reports only on her soreness from falling is able to ambulate without difficulty.] Final Impression Final Impression [1. LEFT hip contusion 2. minor head injury] Dragon Disclaimer Dragon Disclaimer This electronic medical record was generated, in whole or in part, using a voice recognition dictation system. MAKI NESS DO Nov 21, 2017 11:23
== END 2017-11-21 11:11 | disposition home or self-care (01) ==
LOC: ER 10:31
DX: S70.02XA Contusion of left hip, initial encounter (principal); S09.90XA Unspecified injury of head, initial encounter; I11.0 Hypertensive heart disease with heart failure; I50.9 Heart failure, unspecified; J44.9 Chronic obstructive pulmonary disease, unspecified; Z86.73 Personal history of transient ischemic attack (TIA), and cerebral infarction without residual deficits; G89.29 Other chronic pain; Z95.0 Presence of cardiac pacemaker; Z88.2 Allergy status to sulfonamides; Z88.8 Allergy status to other drugs, medicaments and biological substances; W18.09XA Striking against other object with subsequent fall, initial encounter; Y93.89 Activity, other specified; Y99.8 Other external cause status; Y92.89 Other specified places as the place of occurrence of the external cause
CPT/HCPCS: 99284

== ENCOUNTER 2017-12-07 07:35 | Emergency (ER) | payer MEDICARE ==
--- NOTE | 2017-12-07 08:55 | RAD ---
Pelvis with left hip, 3 views, 12/07/2017: HISTORY: fall Bilateral total hip prostheses are in place. There are moderate dystrophic calcifications in the periarticular soft tissues bilaterally. No acute fracture is identified. Centering of the femoral head component of the right prosthesis relative to the acetabular component is slightly off-center. This is not reportedly the area of current clinical concern. Moderate multilevel degenerative changes are present in the lower lumbar spine. IMPRESSION: 1. Bilateral total hip prostheses are in place as described above. 2. No acute bony abnormality is detected. Electronically signed by: David Christiansen MD (12/07/2017 8:52 AM) [facility]
[2017-12-07 10:00] VITALS: BP 136/82
--- NOTE | 2017-12-07 10:01 | PHYS DOC ---
Past History Past Medical History: CHF, Constipation, Depression, Hypertension Additional Past Medical Histor: generalized weakness, chronic back pain since age of 14 Past Surgical History: Hip Replacement, Pacemaker Additional Past Surgical Histo: back surgery right foot surgery Alcohol Use: None Drug Use: None Adult General Chief Complaint Chief Complaint: MECHANICAL FALL HPI HPI 87-year-old male patient resident of custodial brought in by EMS because of a fall and complaining of pain in left hip. Patient states he was slipped at bathroom of rehabilitation unit and injured his left hip. Patient denies loss of consciousness and other injuries. Patient had history of bilateral hip replacement. Patient states his pain is 2/10 that getting worse with activity. EMS reported the patient was ambulated at the scene. Review of Systems Review of Systems Constitutional: Denies fever or chills [] Eyes: Denies change in visual acuity, redness, or eye pain [] HENT: Denies nasal congestion or sore throat [] Respiratory: Denies cough or shortness of breath [] Cardiovascular: No additional information not addressed in HPI [] GI: Denies abdominal pain, nausea, vomiting, bloody stools or diarrhea [] : Denies dysuria or hematuria [] Musculoskeletal: Denies back pain, reports joint pain [] Integument: Denies rash or skin lesions [] Neurologic: Denies headache, focal weakness or sensory changes [] Endocrine: Denies polyuria or polydipsia [] All other systems were reviewed and found to be within normal limits, except as documented in this note. Allergies Allergies Allergies Coded Allergies Type Severity Reaction Last Updated Verified Sulfa (Sulfonamide Antibiotics) Allergy Intermediate 06/20/16 Yes meperidine Allergy Intermediate 06/20/16 Yes promethazine Allergy Intermediate 06/20/16 Yes Physical Exam Physical Exam Constitutional: Well developed, well nourished,mild distress, non-toxic appearance. [] HENT: Normocephalic, atraumatic Eyes: PERRLA, EOMI, conjunctiva normal, no discharge. [] Neck: Normal range of motion, no tenderness, supple, no stridor. [] Cardiovascular:Heart rate regular rhythm, no murmur [] Lungs & Thorax: Bilateral breath sounds clear to auscultation [] Abdomen: Bowel sounds normal, soft, no tenderness, no masses, no pulsatile masses. [] Skin: Warm, dry, no erythema, no rash. [] Back: No tenderness, no CVA tenderness. [] Extremities: No tenderness, no cyanosis, no clubbing, ROM intact, no edema. [] Neurologic: Alert and oriented X 3, normal motor function, normal sensory function, no focal deficits noted. [] Current Patient Data Vital Signs Vital Signs Date Time Temp Pulse Resp B/P (MAP) Pulse Ox O2 Delivery O2 Flow Rate FiO2 12/07/17 07:35 97.6 62 20 96 Room Air EKG EKG [] Radiology/Procedures Radiology/Procedures [][place] [address] IMAGING REPORT Signed PATIENT: CARLEY ROSALES ACCOUNT: [id number] : 1930 LOCATION: ER AGE: 87 SEX: M EXAM STATUS: REG ER ORD. PHYSICIAN: GRIFFIN NIETO MD REASON: fall PROCEDURE: HIP LEFT 2V WITH PELVIS Pelvis with left hip, 3 views, 12/07/2017: HISTORY: fall Bilateral total hip prostheses are in place. There are moderate dystrophic calcifications in the periarticular soft tissues bilaterally. No acute fracture is identified. Centering of the femoral head component of the right prosthesis relative to the acetabular component is slightly off-center. This is not reportedly the area of current clinical concern. Moderate multilevel degenerative changes are present in the lower lumbar spine. IMPRESSION: 1. Bilateral total hip prostheses are in place as described above. 2. No acute bony abnormality is detected. Electronically signed by: David Christiansen MD (12/07/2017 8:52 AM) [facility] DICTATED AND SIGNED BY: DAVID CHRISTIANSEN MD DATE: 12/07/17 0849 CC: JARET GLYNN MD; GRIFFIN NIETO MD ~ Course & Med Decision Making Course & Med Decision Making Pertinent Imaging studies reviewed. (See chart for details) Evaluation of patient in ER showed 87-year-old male patient brought in by EMS because of a fall injury to left hip. Patient dis not have limited range of motion of left hip and was ambulated at custodial. X-ray did not show acute fracture and patient ambulated with help like his baseline and wanted to back to his custodial. Patient states he has had frequent falls at custodial for a long time. Patient is at assisting giving and recommended to talk to his primary care physician regarding changing to custodial status. Dragon Disclaimer Dragon Disclaimer This electronic medical record was generated, in whole or in part, using a voice recognition dictation system. Departure Departure: Impression: Primary Impression: Injury of left hip Additional Impressions: Fall at custodial Decreased ambulation status Assistance needed for ambulation and movement Disposition: HOME, SELF-CARE (at 1000 to assisting living home) Condition: IMPROVED Referrals: JARET GLYNN MD (PCP) Patient Instructions: Fall Prevention in Hospitals, Hip Injury Additional Instructions: Follow-up with your primary care physician for possible transferring from assisting living home to custodial Return to emergency room if not getting better Problem Qualifiers GRIFFIN NIETO MD Dec 07, 2017 10:01
[2017-12-08] MEDS ORDERED: ACET325T21 PO (00:53)
[2017-12-08] MEDS ORDERED: ONDA4TAB10 SL (00:55)
[2017-12-08] MEDS ORDERED: LOPE2CAP88 PO (00:55)
[2017-12-08] MEDS ORDERED: MICO130A9 TP (00:58)
[2017-12-08] MEDS ORDERED: DULO60CA6 PO (00:59)
[2017-12-08] MEDS ORDERED: POTA10TA10 PO (00:59)
[2017-12-08] MEDS ORDERED: GUAI473L15 PO (01:01)
[2017-12-08] MEDS ORDERED: FESO4TAB PO (01:01)
[2017-12-08] MEDS ORDERED: MAGN400O7 PO (01:03)
[2017-12-08] MEDS ORDERED: TAMS0.4C97 PO (01:05)
== END 2017-12-07 10:05 | disposition home or self-care (01) ==
LOC: ER 07:35
DX: S79.912A Unspecified injury of left hip, initial encounter (principal); Z74.09 Other reduced mobility; I50.9 Heart failure, unspecified; I11.0 Hypertensive heart disease with heart failure; F32.9 Major depressive disorder, single episode, unspecified; G89.29 Other chronic pain; Z96.643 Presence of artificial hip joint, bilateral; Z88.2 Allergy status to sulfonamides; Z88.8 Allergy status to other drugs, medicaments and biological substances; W01.0XXA Fall on same level from slipping, tripping and stumbling without subsequent striking against object, initial encounter; Y93.89 Activity, other specified; Y99.8 Other external cause status; Y92.121 Bathroom in nursing home as the place of occurrence of the external cause
CPT/HCPCS: 73502; 99284

== ENCOUNTER 2017-12-07 18:04 | Inpatient (IN) | payer MEDICARE ==
[~2017-12-07] VITALS: Ht 182.9 cm; Wt 123.4 kg
--- NOTE | 2017-12-07 18:46 | PHYS DOC ---
Past History Past Medical History: CHF, Constipation, Depression, Hypertension Additional Past Medical Histor: generalized weakness, chronic back pain since age of 14 Past Surgical History: Hip Replacement, Pacemaker Additional Past Surgical Histo: back surgery right foot surgery Alcohol Use: None Drug Use: None Adult General Chief Complaint Chief Complaint: MECHANICAL FALL HPI HPI 87-year-old male returns emergency room after a second fall at his rehabilitation facility. The patient was seen this morning in this ED by my colleague. See the note for further details. After getting back to the facility , the patient had increased pain in the left leg and hip. He was taking a nap and was lying too close to the edge of the bed. When he woke up he fell out of bed onto the left hip second time on the floor. He denies any other pain or injuries from this fall. Now rates the pain a 7 out of 10 and is unable to bear weight on this hip. Review of Systems Review of Systems Constitutional: Denies fever or chills [] Eyes: Denies change in visual acuity, redness, or eye pain [] HENT: Denies nasal congestion or sore throat [] Respiratory: Denies cough or shortness of breath [] Cardiovascular: No additional information not addressed in HPI [] GI: Denies abdominal pain, nausea, vomiting, bloody stools or diarrhea [] : Denies dysuria or hematuria [] Musculoskeletal: Left hip pain[] Integument: Denies rash or skin lesions [] Neurologic: Denies headache, focal weakness or sensory changes [] Endocrine: Denies polyuria or polydipsia [] All other systems were reviewed and found to be within normal limits, except as documented in this note. Allergies Allergies Allergies Coded Allergies Type Severity Reaction Last Updated Verified Sulfa (Sulfonamide Antibiotics) Allergy Intermediate 06/20/16 Yes meperidine Allergy Intermediate 06/20/16 Yes promethazine Allergy Intermediate 06/20/16 Yes Physical Exam Physical Exam Constitutional: Well developed, well nourished, no acute distress, non-toxic appearance. [] HENT: Normocephalic, atraumatic, bilateral external ears normal, oropharynx moist, no oral exudates, nose normal. [] Eyes: PERRLA, EOMI, conjunctiva normal, no discharge. [] Neck: Normal range of motion, no tenderness, supple, no stridor. [] Cardiovascular:Heart rate regular rhythm, no murmur [] Lungs & Thorax: Bilateral breath sounds clear to auscultation [] Abdomen: Bowel sounds normal, soft, no tenderness, no masses, no pulsatile masses. [] Skin: skin tears with dressings over them [] Back: No tenderness, no CVA tenderness. [] Extremities: Tenderness with palpation of left hip [] Neurologic: Alert and oriented X 3, normal motor function, normal sensory function, no focal deficits noted. [] Psychologic: Affect normal, judgement normal, mood normal. [] EKG EKG Sinus rhythm, rate 60, first-degree heart block, no ST elevation or depression.[ ] Radiology/Procedures Radiology/Procedures CT left hip without contrast HISTORY: Fall, left hip pain, history of bilateral hip replacement. COMPARISON: Left hip x-rays December 07, 2017. TECHNIQUE: Helical multiplanar reconstructed noncontrast CT imaging of the left hip was acquired. FINDINGS: There is mild streak artifact from the left hip arthroplasty. There is an acute traumatic mildly buckled fracture of the left inferior pubic ramus. 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 No dislocation of the femoral head prosthesis or of the cup prosthesis at the acetabulum. The trochanteric femur demonstrates no fracture or loosening of the intramedullary stem. Mild heterotopic ossification at the gluteus muscles. IMPRESSION: 1. Acute traumatic fracture of the left inferior pubic ramus. 2. Left hip arthroplasty. 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 Exposure: One or more of the following individualized dose reduction techniques were utilized for this examination: 1. Automated exposure control 2. Adjustment of the mA and/or kV according to patient size 3. Use of iterative reconstruction technique Electronically signed by: Mike Solano MD (12/07/2017 11:20 PM) [facility][] Impressions: My reading of the patient's x-rays are as there are no acute changes. I do not see a fracture. Given the patient's prosthesis, I will have them over read. Course & Med Decision Making Course & Med Decision Making Pertinent Labs and Imaging studies reviewed. (See chart for details) His labs are significant for an elevated ProBNP. Review of his chart shows that his current number is much better than his previous 2. This is likely near his baseline. Patient continues to have pain with weightbearing. I discussed the case with the hospitalist, Dr. Almodovar and he is agreed to admit the patient for further observation. He has requested that we do a CT scan of the hip has some fractures are missed by x-ray. I have ordered that scan. I discussed the plan with the family and they were in agreement. The CT scan did show a traumatic fracture of the left inferior pubic ramus. I discussed the findings with Dr. Almodovar again and he was comfortable with continuing admission to [facility]. [] Dragon Disclaimer Dragon Disclaimer This electronic medical record was generated, in whole or in part, using a voice recognition dictation system. Departure Departure: Referrals: JARET GLYNN MD (PCP) MAKI MUNOZ DO Dec 07, 2017 18:46
--- NOTE | 2017-12-07 18:52 | EKG ---
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
[2017-12-07 20:03] LABS: BASO % 0 % (0-3); EOS # 0.1 x10^3/uL (0.0-0.7); EOS % 1 % (0-3); HEMATOCRIT 44.6 % (39.0-53.0); HEMOGLOBIN 15.3 g/dL (13.0-17.5); LYMPH # 1.9 x10^3/uL (1.0-4.8); LYMPH % 21 % (24-48); MEAN CORPUSCULAR HEMOGLOBIN 31 pg (25-35); MEAN CORPUSCULAR HGB CONC 34 g/dL (31-37); MEAN CORPUSCULAR VOLUME 92 fL (79-100); MONO % 10 % (0-9); NEUT # 6.3 x10^3uL (1.8-7.7); NEUT % 68 % (31-73); PLATELET COUNT 183 x10^3/uL (140-400); RED BLOOD COUNT 4.87 x10^6/uL (4.30-5.70); RED CELL DISTRIBUTION WIDTH 15.6 % (11.5-14.5); WHITE BLOOD COUNT 9.3 x10^3/uL (4.0-11.0)
[2017-12-07 20:20] LABS: ALBUMIN 3.3 g/dL (3.4-5.0); ALBUMIN/GLOBULIN RATIO 1.1 (1.0-1.7); CALCIUM 8.7 mg/dL (8.5-10.1); CREATININE 1.1 mg/dL (0.7-1.3); GFR 63.5; POTASSIUM 3.7 mmol/L (3.5-5.1); TOTAL BILIRUBIN 1.9 mg/dL (0.2-1.0); TOTAL PROTEIN 6.4 g/dL (6.4-8.2)
--- NOTE | 2017-12-07 23:23 | RAD ---
CT left hip without contrast HISTORY: Fall, left hip pain, history of bilateral hip replacement. COMPARISON: Left hip x-rays December 07, 2017. TECHNIQUE: Helical multiplanar reconstructed noncontrast CT imaging of the left hip was acquired. FINDINGS: There is mild streak artifact from the left hip arthroplasty. There is an acute traumatic mildly buckled fracture of the left inferior pubic ramus. 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 No dislocation of the femoral head prosthesis or of the cup prosthesis at the acetabulum. The trochanteric femur demonstrates no fracture or loosening of the intramedullary stem. Mild heterotopic ossification at the gluteus muscles. IMPRESSION: 1. Acute traumatic fracture of the left inferior pubic ramus. 2. Left hip arthroplasty. 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 Exposure: One or more of the following individualized dose reduction techniques were utilized for this examination: 1. Automated exposure control 2. Adjustment of the mA and/or kV according to patient size 3. Use of iterative reconstruction technique Electronically signed by: Mike Solano MD (12/07/2017 11:20 PM) [facility] [place]
[2017-12-07] MEDS ORDERED: MORPHINE SULFATE 2 MG/ML DISP.SYRIN. IV ONE (23:45)
[2017-12-07] MEDS ORDERED: ONDANSETRON ODT 4 MG TAB.RAPDIS PO ONE (23:45)
[2017-12-08] MEDS ORDERED: ONDANSETRON PF 4 MG/2 ML VIAL. IV PRN
[2017-12-08] MEDS ORDERED: MORPHINE SULFATE 2 MG/ML DISP.SYRIN. IV PRN
[2017-12-08 00:40] VITALS: BP 136/88
[2017-12-08] MEDS ORDERED: ACET325T21 PO (00:53)
[2017-12-08] MEDS ORDERED: LOPE2CAP88 PO (00:55)
[2017-12-08] MEDS ORDERED: ONDA4TAB10 SL (00:55)
[2017-12-08] MEDS ORDERED: MICO130A9 TP (00:58)
[2017-12-08] MEDS ORDERED: POTA10TA10 PO (00:59)
[2017-12-08] MEDS ORDERED: DULO60CA6 PO (00:59)
[2017-12-08] MEDS ORDERED: FESO4TAB PO (01:01)
[2017-12-08] MEDS ORDERED: GUAI473L15 PO (01:01)
[2017-12-08] MEDS ORDERED: MAGN400O7 PO (01:03)
[2017-12-08] MEDS ORDERED: TAMS0.4C97 PO (01:05)
[2017-12-08 05:45] VITALS: BP 151/82
[2017-12-08] MEDS ORDERED: LOPERAMIDE 2 MG CAPSULE PO PRN (06:00)
[2017-12-08] MEDS ORDERED: guaiFENesin 300 MG/15 ML LIQUID PO PRN (06:00)
[2017-12-08] MEDS ORDERED: ONDANSETRON ODT 4 MG TAB.RAPDIS PO PRN (07:15)
--- NOTE | 2017-12-08 08:05 | RAD ---
EXAM: Left hip, 2 views. HISTORY: Fall. COMPARISON: 12/07/2017 FINDINGS: 2 views of the left hip are obtained. There is a left hip arthroplasty in expected position. No periprosthetic fracture is seen. There is lucency within the acetabulum surrounding the acetabular cup which may be due to osteolysis. IMPRESSION: 1. Left hip arthroplasty in expected position. There is lucency surrounding the acetabular cup which may be due to a component of particle disease. 2. Note is made that the inferior left pubic ramus fracture demonstrated on the CT performed on the same date is excluded from the [id number] on the submitted images. Please refer to the CT for additional findings. Electronically signed by: Airam Mary MD (12/08/2017 8:02 AM) [facility]
--- NOTE | 2017-12-08 08:18 | RAD ---
EXAM: Chest, 2 views. HISTORY: Fall. COMPARISON: 07/29/2017 FINDINGS: Frontal and lateral views of chest are obtained. There is suspected left basilar atelectasis. There is no pleural effusion or pneumothorax. There is stable enlargement of the cardiac silhouette. There is a large hiatal hernia with intrathoracic positioning of the stomach. There is a cardiac pacemaker with leads overlying expected position. There is degenerative change involving both shoulders. IMPRESSION: 1. Large hiatal hernia with suspected compressive atelectasis involving the left lung base. 2. Stable prominent cardiac silhouette. Electronically signed by: Airam Mary MD (12/08/2017 8:15 AM) [facility]
[2017-12-08] MEDS: MICONAZOLE NITRATE 2% TOPICAL CREAM 28GM TUBE. TP SCH ×2 (09:00→20:09)
[2017-12-08] MEDS: MAGNESIUM HYDROXIDE 2,400 MG/30 ML ORAL.SUSP. PO SCH (09:01)
[2017-12-08] MEDS: METOPROLOL SUCC 24HR ER 50 MG TAB.ER.24H. PO SCH (09:01)
[2017-12-08] MEDS: ASPIRIN 81 MG TAB.CHEW PO SCH (09:01)
[2017-12-08] MEDS: LISINOPRIL 2.5 MG TABLET PO SCH (09:01)
[2017-12-08] MEDS: POTASSIUM CHLORIDE 20 MEQ TABLET.ER. PO SCH ×2 (09:01→20:09)
[2017-12-08] MEDS: FUROSEMIDE 40 MG TABLET PO SCH (09:02)
[2017-12-08] MEDS: MAGNESIUM OXIDE 400 MG TABLET PO SCH (09:02)
[2017-12-08] MEDS: OMEGA-3 FATTY ACIDS/FISH OIL 1,000 MG CAPSULE. PO SCH (09:02)
[2017-12-08] MEDS: TAMSULOSIN 0.4 MG CAP.ER.24H. PO SCH (09:02)
[2017-12-08] MEDS: DULoxetine HCL 60 MG CAPSULE.DR PO SCH (09:02)
[2017-12-08] MEDS: ACETAMINOPHEN 325 MG TABLET PO PRN (09:11)
[2017-12-08 11:30] VITALS: BP 124/62
--- NOTE | 2017-12-08 12:24 | PN ---
DATE: 12/08/2017 SUBJECTIVE: The patient is resting, slightly propped up in bed, in no apparent distress. He continued to complain of pain in his left hip on movement, but he has pain free when he is sitting still. Denied any other complaint. The nursing staff did not voice any concerns that he has an uneventful night. PHYSICAL EXAMINATION: GENERAL: When I examined him, he looked well and was clearly in no apparent respiratory distress. No pallor, jaundice, cyanosis, or thyromegaly. No jugular venous distension. No limb edema. VITAL SIGNS: His heart rate was 81, blood pressure was 134/57, temperature was 98, respiratory rate 20, and oxygen saturation was 99%. The rest of clinical examination is unremarkable, has not really changed. PLAN: To continue with pain management. Continue with DVT prophylaxis. I have consulted physical and occupational therapy. I spoke with his and his step son regarding further management. We will evaluate him hopefully on Sunday to decide whether he needs to go back to assisted living and/or rehab center. LIS SAMANIEGO MD DR: ARABELLA/yumiko JOB#: [id number] / [id number]
--- NOTE | 2017-12-08 12:42 | HP ---
ADMIT DATE: 12/08/2017 HISTORY OF PRESENT ILLNESS: The patient is an 87-year-old male patient, a resident at [facility], who fell yesterday morning and was evaluated in the Emergency Room on his left hip and he has had x-rays done. At that time, he had x-ray of both hip joints showing moderate dystrophic calcification in the periarticular soft tissue bilaterally, no acute fracture identified. Centering of the femoral head component of the right prosthesis relative to the acetabular component is slightly off center. This is not reportedly the area of current clinical concern, moderate multilevel degenerative changes are present in the lower lumbar spine. The patient was evaluated in the Emergency Room, was discharged back to follow with his primary care physician and unfortunately he fell again and came with increased pain in his left leg and left hip. He apparently was taking a nap and was lying too close to the edge of the bed. When he woke up, he fell out of bed onto the left hip second time on the floor. He rated his pain as 7/10. He is unable to bear weight on his left hip and was extensively evaluated. 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 The patient was admitted for pain management and further evaluation and perhaps deep vein thrombosis and for physical and occupational therapy evaluation. PAST MEDICAL HISTORY: Significant for chronic obstructive pulmonary disease, hypertension. 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 The patient did not have any residual deficits. He has been ambulatory with a walker. Other medical problems include congestive heart failure, most likely due to left ventricular systolic dysfunction, benign prostatic hypertrophy, generalized osteoarthritis, morbid obesity, obstructive sleep apnea. PAST SURGICAL HISTORY: Significant for left hip arthroplasty x 2, right hip arthroplasty, had back surgery, bilateral carpal tunnel release and bilateral cataract extraction. ALLERGIES: He is allergic to SULFA DRUGS, MEPERIDINE and PROMETHAZINE. MEDICATIONS: The patient is currently on following medications: He is on Flomax 0.4 mg once a day at bedtime, metoprolol succinate 50 mg daily, lisinopril 2.5 mg once a day, aspirin 81 mg daily, acetaminophen 650 mg every 4 hours as needed, duloxetine 60 mg daily, potassium chloride 20 mEq twice a day, furosemide 40 mg once a day, Guaifenesin with codeine 10 mL every 4 hours, magnesium oxide 400 mg daily, loperamide 2 mg 3 times a day as needed, milk of magnesia 30 mL p.o. daily, ondansetron 4 mg sublingually every 8 hours as needed for nausea and vomiting, econazole nitrate 130 grams powder twice a day, Toviaz 4 mg daily and fish oil mg daily. FAMILY HISTORY: Noncontributory. SOCIAL HISTORY: He is and now lives in assisted living and his lives in independent living. He apparently does not smoke, drink alcohol or use any recreational drugs. REVIEW OF SYSTEMS: The patient has bilateral cataract extraction, but denied any glaucoma or macular degeneration. Denied any earache, tinnitus or sensorineural deafness. Denied any nosebleeds, stuffy nose or postnasal drip. Denied any sore throat, sore tongue, toothache, hoarseness of voice or difficulty swallowing. He denied any nausea, vomiting, diarrhea or constipation. Denied any hematemesis, melena or hematochezia. Denied any dysuria, frequency or hematuria. He did complain of pain in his left hip joint when exertion, but not at rest. PHYSICAL EXAMINATION: GENERAL: On arrival to the Emergency Room, he looked well and was clearly in no apparent respiratory distress. No pallor, jaundice, cyanosis, or thyromegaly. No jugular venous distension. No limb edema. VITAL SIGNS: His heart rate was 61, blood pressure was 123/77, temperature was 97.8, respiratory rate was 18 and oxygen saturation was 93%. HEAD, EYES, EARS, NOSE AND THROAT: Showed normocephalic, atraumatic. NECK: Supple. HEART: Showed normal first and second sounds. No gallop, rub or murmur. CHEST: Clear to auscultation. No crepitation or rhonchi. ABDOMEN: Slightly distended, soft, nontender. No guarding or rigidity. No organomegaly. All hernial orifice intact. Bowel sounds normal. NEUROLOGIC: He is hard of hearing. Otherwise, his cranial nerves intact. EXTREMITIES: He moves upper extremities without difficulty. He has difficulty bending his left knee because of pain in his left groin. LABORATORY DATA: As of yesterday showed a white cell count 9300, hemoglobin 15, hematocrit 44, MCV 92, and platelet count of 183,000. His chemistry showed a serum sodium 139, potassium 3.7, chloride 105, bicarbonate 31, anion gap of 3, BUN 18, creatinine 1.1, estimated GFR was 64 mL per minute. His glucose was 105, calcium was 8.7. Total bilirubin 1.9. AST, ALT are normal. BNP was 920. Total protein 6.4, albumin 3.[address] scan of the left hip without contrast showed that he has acute traumatic fracture of the left inferior pubic ramus. He had left hip arthroplasty with focal bone lysis with anterior acetabulum. 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 PLAN: To admit the patient, continued all his medication. He was started on morphine as well as DVT prophylaxis with SCDs. We will consult PT, OT and decide on further management accordingly. LIS SAMANIEGO MD DR: ARABELLA/yumiko JOB#: [id number] / [id number]
[2017-12-08 14:40] VITALS: BP 124/61
[2017-12-08 20:13] VITALS: BP 114/70
[2017-12-09] MEDS: ACETAMINOPHEN 325 MG TABLET PO PRN (06:08)
[2017-12-09 06:41] VITALS: BP 125/72
[2017-12-09 06:54] LABS: HEMATOCRIT 42.4 % (39.0-53.0); HEMOGLOBIN 14.6 g/dL (13.0-17.5); RED BLOOD COUNT 4.59 x10^6/uL (4.30-5.70); RED CELL DISTRIBUTION WIDTH 15.8 % (11.5-14.5); WHITE BLOOD COUNT 7.1 x10^3/uL (4.0-11.0)
[2017-12-09 07:10] LABS: ALBUMIN 2.9 g/dL (3.4-5.0); CALCIUM 8.4 mg/dL (8.5-10.1); GFR 70.8; TOTAL BILIRUBIN 2.4 mg/dL (0.2-1.0); TOTAL PROTEIN 5.9 g/dL (6.4-8.2)
[2017-12-09] MEDS: MICONAZOLE NITRATE 2% TOPICAL CREAM 28GM TUBE. TP SCH ×2 (08:40→19:59)
[2017-12-09] MEDS: DULoxetine HCL 60 MG CAPSULE.DR PO SCH (08:41)
[2017-12-09] MEDS: POTASSIUM CHLORIDE 20 MEQ TABLET.ER. PO SCH ×2 (08:41→19:59)
[2017-12-09] MEDS: ASPIRIN 81 MG TAB.CHEW PO SCH (08:41)
[2017-12-09] MEDS: MAGNESIUM OXIDE 400 MG TABLET PO SCH (08:41)
[2017-12-09] MEDS: OMEGA-3 FATTY ACIDS/FISH OIL 1,000 MG CAPSULE. PO SCH (08:41)
[2017-12-09] MEDS: LISINOPRIL 2.5 MG TABLET PO SCH (08:41)
[2017-12-09] MEDS: METOPROLOL SUCC 24HR ER 50 MG TAB.ER.24H. PO SCH (08:41)
[2017-12-09] MEDS: TAMSULOSIN 0.4 MG CAP.ER.24H. PO SCH (08:41)
[2017-12-09] MEDS: MAGNESIUM HYDROXIDE 2,400 MG/30 ML ORAL.SUSP. PO SCH (08:42)
[2017-12-09] MEDS: FUROSEMIDE 40 MG TABLET PO SCH (08:42)
--- NOTE | 2017-12-09 11:00 | PN ---
DATE: 12/09/2017 SUBJECTIVE: The patient is resting, slightly propped up in bed, in no apparent respiratory distress, somewhat sleepy, but arousable, stated that he has no pain when he is sitting still. He was not evaluated yet by the physical therapist and nursing staff did not voice any concerns that he had an mostly uneventful night, although he had . OBJECTIVE: GENERAL: On examining him, if anything plethoric, no jaundice or cyanosis, no lymphadenopathy or thyromegaly. No jugular venous distention. No limb edema. VITAL SIGNS: His heart rate was 62, blood pressure was 125/72, temperature was 97.7, respiratory rate 20, and oxygen saturation was 97% on 2 liters of oxygen. HEAD, EYES, EARS, NOSE AND THROAT: Showed normocephalic, atraumatic. NECK: Supple. HEART: Showed normal first and second heart sounds. No gallop, rub or murmur. CHEST: Clear to auscultation. No crepitation or rhonchi. ABDOMEN: Distended, soft, nontender. NEUROLOGIC: He was awake, he is somewhat sleepy, but arousable. He answers questions appropriately. All cranial nerves intact. He moves his upper extremities to much good compared to lower extremities, he is mostly bed bound. His intake was 700, output was 600. LABORATORY DATA: As of this morning; his white cell count was 7100, hemoglobin 14.6, hematocrit 42, MCV 93 and platelet count 271,000. Serum sodium 141, potassium 4, chloride 107, bicarbonate 32, anion gap of 2, BUN 19, creatinine 1, estimated GFR was 71 mL per minute. His glucose was 94, calcium was 8.4. Total bilirubin 2.4. AST, ALT, alkaline phosphatase were normal. Total protein was 5.9, albumin was 2.9. His nasal screen for MRSA by PCR was negative. ASSESSMENT: Recurrent falls. The patient has sustained fracture of left inferior pubic ramus. Also, CT scan showed some loosening of his left hip prosthesis; however, this is known before and was seen by the orthopedic surgeon for that and is not a candidate for any revision. The patient has multiple other medical problems including chronic obstructive pulmonary disease, hypertension, has multiple strokes before. He is known to have congestive heart failure, benign prostatic hypertrophy, generalized osteoarthritis, morbid obesity and obstructive sleep apnea. PLAN: To continue with pain management, DVT prophylaxis. We have consulted physical and occupational therapist to evaluate the patient. LIS SAMANIEGO MD DR: ARABELLA/yumiko JOB#: [id number] / [id number]
[2017-12-09 11:10] VITALS: BP 138/83
[2017-12-09] MEDS ORDERED: MORPHINE SULFATE 4 MG/ML DISP.SYRIN. IV PRN (11:30)
[2017-12-09] MEDS ORDERED: MORPHINE SULFATE 2 MG/ML DISP.SYRIN. IV PRN (11:30)
[2017-12-09 15:04] VITALS: BP 112/76
[2017-12-09 19:20] VITALS: BP 121/72
[2017-12-10 05:15] VITALS: BP 110/76
[2017-12-10] MEDS: POTASSIUM CHLORIDE 20 MEQ TABLET.ER. PO SCH (08:19)
[2017-12-10] MEDS: OMEGA-3 FATTY ACIDS/FISH OIL 1,000 MG CAPSULE. PO SCH (08:19)
[2017-12-10] MEDS: TAMSULOSIN 0.4 MG CAP.ER.24H. PO SCH (08:19)
[2017-12-10] MEDS: DULoxetine HCL 60 MG CAPSULE.DR PO SCH (08:20)
[2017-12-10] MEDS: LISINOPRIL 2.5 MG TABLET PO SCH (08:20)
[2017-12-10] MEDS: MAGNESIUM OXIDE 400 MG TABLET PO SCH (08:20)
[2017-12-10] MEDS: FUROSEMIDE 40 MG TABLET PO SCH (08:20)
[2017-12-10] MEDS: ASPIRIN 81 MG TAB.CHEW PO SCH (08:20)
[2017-12-10] MEDS: METOPROLOL SUCC 24HR ER 50 MG TAB.ER.24H. PO SCH (08:20)
[2017-12-10] MEDS: MAGNESIUM HYDROXIDE 2,400 MG/30 ML ORAL.SUSP. PO SCH (08:21)
[2017-12-10] MEDS: MICONAZOLE NITRATE 2% TOPICAL CREAM 28GM TUBE. TP SCH (08:21)
[2017-12-10 10:44] VITALS: BP 109/69
--- NOTE | 2017-12-10 12:59 | DS ---
DATE OF DISCHARGE: 12/10/2017 HOSPITAL COURSE: The patient is an 87-year-old male patient who was admitted with a complaint of pain in his left hip after he has fallen twice in his assisted living facility. His x-ray showed that he has loosening of the left hip prosthesis. Apparently, there is known before, which he was seen by orthopedic surgeon for and that is not a candidate for any surgical intervention; however, the CT scan showed he has sustained fracture of the left inferior pubic ramus. The patient was evaluated by the physical therapy and is now able to stand. He is unable to basically walk without assistance and it would not be safe for him to go to the assisted living facility and therefore, the patient was discharged to [facility] to continue the process of rehabilitation and pain management. PHYSICAL EXAMINATION: GENERAL: When I saw him today, he looked well and was clearly in no apparent respiratory distress. There was definitely no pallor, jaundice, cyanosis, lymphadenopathy or thyromegaly. No jugular venous distension. No limb edema. VITAL SIGNS: His heart rate was 60, blood pressure was 109/69, temperature was 98, respiratory rate 20, and oxygen saturation was 95% on 2 liters of oxygen. HEAD, EYES, EARS, NOSE AND THROAT: Showed normocephalic, atraumatic. NECK: Supple. HEART: Showed normal first and second heart sounds with no gallop, rub or murmur. CHEST: Clear to auscultation. No crepitation or rhonchi. ABDOMEN: Distended, soft, nontender. No guarding or rigidity. No organomegaly. Hernial orifices intact. Bowel sounds normal. NEUROLOGIC: He was awake, alert. All his cranial nerves are intact. He moves extremities without difficulty, although he is mostly bedbound, chair bound. His intake over the last 24 hours was 1150, output was 700. LABORATORY DATA: Showed a white cell count of 7100, hemoglobin 14.6, hematocrit 42, MCV 93 and platelet count 271,000. Serum sodium was 141, potassium 4, chloride 107, bicarbonate 32, anion gap of 2, BUN 19, creatinine 1, estimated GFR was 70 mL per minute, his glucose was 94, calcium was 8.4. Total bilirubin 2.4. AST, ALT, alkaline phosphatase were normal. Total protein 5.9, albumin was 2.9. DISCHARGE MEDICATIONS: He will be discharged to [facility] to continue on Tylenol 650 mg every 4 hours, aspirin 81 mg once a day, duloxetine for Cymbalta 60 mg once a day, Toviaz 4 mg daily, fish oil 2400 mg once a day, furosemide 40 mg daily, Mucinex with codeine 10 mL every 4 hours, lisinopril 2.5 mg once a day, loperamide 2 mg 3 times a day, magnesium hydroxide for milk of magnesia 30 mL p.o. daily p.r.n. for constipation, magnesium oxide 400 mg daily, metoprolol succinate 50 mg once a day, miconazole nitrate applied topically twice a day, ondansetron 4 mg daily, potassium chloride 20 mEq twice a day, and tamsulosin for Flomax 0.4 mg at bedtime. FINAL DISCHARGE DIAGNOSES: 1. Recurrent falls. 2. Left inferior pubic rami fracture. 3. Loosening left hip prosthesis. The patient is not a candidate for intervention. 4. The patient has multiple other medical problems including: A. Chronic obstructive pulmonary disease. B. Hypertension. C. Multiple strokes. D. Congestive heart failure E. Benign prostatic hypertrophy F. Generalized osteoarthritis. G. Morbid obesity and obstructive sleep apnea. LIS SAMANIEGO MD DR: ARABELLA/yumiko JOB#: [id number] / [id number]
== END 2017-12-10 15:43 | DRG 560 ==
LOC: ER 18:04 → 1 SOUTH 23:40
PROVIDERS: ADMIT Internal Medicine; ATTEND Internal Medicine
DX: T84.031A Mechanical loosening of internal left hip prosthetic joint, initial encounter (principal); S32.592A Other specified fracture of left pubis, initial encounter for closed fracture; E66.01 Morbid (severe) obesity due to excess calories; G47.33 Obstructive sleep apnea (adult) (pediatric); J44.9 Chronic obstructive pulmonary disease, unspecified; M15.9 Polyosteoarthritis, unspecified; N40.0 Benign prostatic hyperplasia without lower urinary tract symptoms; R29.6 Repeated falls; Z96.641 Presence of right artificial hip joint; F32.9 Major depressive disorder, single episode, unspecified; I11.0 Hypertensive heart disease with heart failure; G89.29 Other chronic pain; M54.9 Dorsalgia, unspecified; W06.XXXA Fall from bed, initial encounter; Y92.238 Other place in hospital as the place of occurrence of the external cause; Y79.2 Prosthetic and other implants, materials and accessory orthopedic devices associated with adverse incidents; I50.9 Heart failure, unspecified; Z79.82 Long term (current) use of aspirin; Z86.73 Personal history of transient ischemic attack (TIA), and cerebral infarction without residual deficits; Z98.41 Cataract extraction status, right eye; Z98.42 Cataract extraction status, left eye; Z95.0 Presence of cardiac pacemaker; Y93.84 Activity, sleeping; Y99.8 Other external cause status; Z88.8 Allergy status to other drugs, medicaments and biological substances; Z79.899 Other long term (current) drug therapy; Z68.36 Body mass index [BMI] 36.0-36.9, adult
CPT/HCPCS: 36415; 71046; 73502; 73700; 80053; 83880; 85025; 85027; 87641; 93005; 96374; J2270; Q0162; 97530; 99285-25

== ENCOUNTER 2018-01-17 10:23 | Emergency (ER) | payer MEDICARE ==
[~2018-01-17] VITALS: Ht 182.9 cm; Wt 121.0 kg
[~2018-01-17 10:23] MED LIST changes: +ACET325T21 PO; +DULO60CA6 PO; +FESO4TAB PO; +GUAI473L15 PO; +LOPE2CAP88 PO; +MAGN400O7 PO; +MICO130A9 TP; +ONDA4TAB10 SL; +POTA10TA10 PO; +TAMS0.4C97 PO
--- NOTE | 2018-01-17 10:51 | RAD ---
RS Compliance Statement: One or more of the following individualized dose reduction techniques were utilized for this examination: 1. Automated exposure control 2. Adjustment of the mA and/or kV according to patient size 3. Use of iterative reconstruction technique CT head without contrast 01/17/2018 10:36 AM INDICATION: Left-sided weakness. Found down. Difficulty with speech. COMPARISON: CT head September 24, 2017 TECHNIQUE: Multiple axial CT images of the head were obtained from skull base through the vertex without intravenous contrast. FINDINGS: Head: Ventricles, sulci and basal cisterns are prominent compatible with mild generalized cerebral volume loss. Low-attenuation in the periventricular white matter is suggestive of chronic small vessel ischemic changes. There is a remote infarct involving the inferior left cerebellum with associated encephalomalacia. There is encephalomalacia involving the medial left occipital lobe compatible with remote ischemic changes.. There is no hydrocephalus. Alejandro-white matter differentiation is normal. There is no acute intracranial hemorrhage. There is no mass, mass effect or midline shift. Posterior fossa is normal in appearance. Visualized portions of the orbits are normal with exception of bilateral lens replacement. Paranasal sinuses are well aerated. Mastoid air cells are well aerated. Scalp and calvaria are normal. IMPRESSION: No acute intracranial hemorrhage. Remote ischemic changes are noted in the left inferior cerebellum and medial left occipital lobe. Mild generalized cerebral volume loss with low attenuation the periventricular white matter suggestive of chronic small vessel ischemic changes. FOR INTERNAL CODING PURPOSES Critical result: Findings discussed with MAKI MUNOZ at 01/17/2018 10:45 AM. RESULT CODE: (C) Electronically signed by: Fara Lowery MD (01/17/2018 10:47 AM) [id number]
--- NOTE | 2018-01-17 10:53 | EKG ---
[address] [address] Test Date: 2018-01-17 Test Time: 10:51:07 Pat Name: CARLEY ROSALES Department: Room: Gender: M Publishing Director: : [id number] Requested By: MAKI MUNOZ Order Number: [id number] Reading MD: Measurements Intervals [place] Rate: 126 P: [place]: QRS: -61 QRSD: 202 T: 111 QT: 352 QTc: 510 Interpretive Statements IRREGULAR RHYTHM, NO P-WAVE FOUND VENTRICULAR PREMATURE COMPLEX(ES) ABNORMAL LEFT AXIS DEVIATION NON SPECIFIC INTRAVENTRICULAR BLOCK QRS(T) CONTOUR ABNORMALITY CONSIDER ANTEROSEPTAL MYOCARDIAL DAMAGE ABNORMAL ECG RI6.01 Unconfirmed report Compared to ECG 12/07/2017 18:48:05 Left-axis deviation now present
[2018-01-17 10:57] LABS: HEMATOCRIT 44.3 % (39.0-53.0); HEMOGLOBIN 14.9 g/dL (13.0-17.5); RED BLOOD COUNT 4.83 x10^6/uL (4.30-5.70); RED CELL DISTRIBUTION WIDTH 15.7 % (11.5-14.5); WHITE BLOOD COUNT 5.8 x10^3/uL (4.0-11.0)
--- NOTE | 2018-01-17 10:58 | PHYS DOC ---
Past History Past Medical History: CAD, CHF, Constipation, COPD, CVA, Depression, Hypertension Additional Past Medical Histor: generalized weakness, chronic back pain since age of 14 Past Surgical History: Hip Replacement, Pacemaker Additional Past Surgical Histo: back surgery right foot surgery Alcohol Use: None Drug Use: None Adult General Chief Complaint Chief Complaint: ALTERED MENTAL STATUS HPI HPI 87-year-old male presents via EMS from nursing facility for unresponsive episode. The patient was found on an exercise bike around 9:50 AM and was unresponsive. He did not fall off the bike. He was unable to answer questions and was not arousable. The facility called EMS. EMS found the patient to also be unresponsive also. He did wake up just prior to arrival to the ED and was able to tell them his name. On arrival, the patient is able to tell us his name and he was able to recognize he is in hospital. He was not answering questions beyond this. The patient is DNR and has paperwork that states that he is comfort care only. Review of Systems Review of Systems Minimal ROS due to minimally responsive. Constitutional: Decreased ability to answer questions [] Eyes: Denies visual changes, [] HENT: [] Respiratory: Denies cough or shortness of breath [] Cardiovascular: No additional information not addressed in HPI [] GI: Denies abdominal pain [] : [] Musculoskeletal: [] Integument: [] Neurologic: Denies headache [] Endocrine: [] All other systems were reviewed and found to be within normal limits, except as documented in this note. Allergies Allergies Allergies Coded Allergies Type Severity Reaction Last Updated Verified Sulfa (Sulfonamide Antibiotics) Allergy Intermediate 06/20/16 Yes meperidine Allergy Intermediate 06/20/16 Yes promethazine Allergy Intermediate 06/20/16 Yes Physical Exam Physical Exam Constitutional: Well developed, well nourished, non-toxic appearance. [] HENT: Normocephalic, atraumatic, bilateral external ears normal, oropharynx dry , no oral exudates, nose normal. [] Eyes: PERRLA, EOMI, conjunctiva normal, no discharge. [] Neck: Normal range of motion, no tenderness, supple, no stridor. [] Cardiovascular: Heart paced rhythm, no murmur [] Lungs & Thorax: Bilateral breath sounds clear to auscultation [] Abdomen: Bowel sounds normal, soft, no tenderness, no masses, no pulsatile masses. [] Skin: Warm, dry, no erythema, no rash. [] Back: . [] Extremities: No tenderness, no cyanosis, [] Neurologic: Alert to person and place,4/5 arm strength on left, 4/5 leg strength on left, slow verbal responses, not answering all questions [] Psychologic: Affect normal, mood normal. [] EKG EKG [] Radiology/Procedures Radiology/Procedures [] Impressions: PQRS Compliance Statement: One or more of the following individualized dose reduction techniques were utilized for this examination: 1. Automated exposure control 2. Adjustment of the mA and/or kV according to patient size 3. Use of iterative reconstruction technique CT head without contrast 01/17/2018 10:36 AM INDICATION: Left-sided weakness. Found down. Difficulty with speech. COMPARISON: CT head September 24, 2017 TECHNIQUE: Multiple axial CT images of the head were obtained from skull base through the vertex without intravenous contrast. FINDINGS: Head: Ventricles, sulci and basal cisterns are prominent compatible with mild generalized cerebral volume loss. Low-attenuation in the periventricular white matter is suggestive of chronic small vessel ischemic changes. There is a remote infarct involving the inferior left cerebellum with associated encephalomalacia. There is encephalomalacia involving the medial left occipital lobe compatible with remote ischemic changes.. There is no hydrocephalus. Alejandro-white matter differentiation is normal. There is no acute intracranial hemorrhage. There is no mass, mass effect or midline shift. Posterior fossa is normal in appearance. Visualized portions of the orbits are normal with exception of bilateral lens replacement. Paranasal sinuses are well aerated. Mastoid air cells are well aerated. Scalp and calvaria are normal. IMPRESSION: No acute intracranial hemorrhage. Remote ischemic changes are noted in the left inferior cerebellum and medial left occipital lobe. Mild generalized cerebral volume loss with low attenuation the periventricular white matter suggestive of chronic small vessel ischemic changes. Chest radiograph 01/17/2018 10:33 AM INDICATION: Code stroke, weakness COMPARISON: December 07, 2017 TECHNIQUE: Portable upright frontal view of the chest is provided. FINDINGS: The cardiomediastinal silhouette is enlarged, stable. Left chest wall cardiac device is in similar position. There is a large sized hiatal hernia. There are no pleural effusions. There is no pulmonary vascular congestion. There is no pneumothorax. The lungs are clear. No significant osseous abnormality is identified. IMPRESSION: Stable cardiomegaly. No definite superimposed infiltrate. Large hiatal hernia. Electronically signed by: Fara Lowery MD (01/17/2018 11:15 AM) [id number] Course & Med Decision Making Course & Med Decision Making Pertinent Labs and Imaging studies reviewed. (See chart for details) Patient's labs are unremarkable. His head CT is negative for acute findings. His chest x-ray is negative for acute findings. The patient's labs are unremarkable. His urine is unremarkable. Pacemaker was interrogated and no unusual findings were found. I spoke personally with the [employer] and he explained that the abnormal pattern were seen. This was simply the patient is set up as a demand pacer. He does have some of his own beats. When he drops a conduction, the pacer kicks in. This explains his unusual rate being below the setting of 60 bpm. After a period of time, the patient became much more aware and alert. The last thing he remembers is being on the exercise bike. He does not recall anything until being here in the ED. He is fully aware of his surroundings. He is answering all questions. He is able to move his extremities. The patient is able to ambulate with assistance which I am told is his baseline. The patient is returned to baseline, this appears most consistent with TIA. The patient is comfort care and DO NOT RESUSCITATE. He does not wish to have interventions done. Given all this, admission for further observation seems unnecessary. I discussed returning to his care facility with their cell efficiency supervisor. She has agreed to have him return. The patient will be transferred back to his care facility. [] Dragon Disclaimer Dragon Disclaimer This electronic medical record was generated, in whole or in part, using a voice recognition dictation system. Departure Departure: Referrals: JARET GLYNN MD (PCP) MAKI MUNOZ DO Jan 17, 2018 10:58
[2018-01-17 11:04] LABS: CALCIUM 8.6 mg/dL (8.5-10.1); GFR 70.8; POTASSIUM 3.9 mmol/L (3.5-5.1)
--- NOTE | 2018-01-17 11:19 | RAD ---
Chest radiograph 01/17/2018 10:33 AM INDICATION: Code stroke, weakness COMPARISON: December 07, 2017 TECHNIQUE: Portable upright frontal view of the chest is provided. FINDINGS: The cardiomediastinal silhouette is enlarged, stable. Left chest wall cardiac device is in similar position. There is a large sized hiatal hernia. There are no pleural effusions. There is no pulmonary vascular congestion. There is no pneumothorax. The lungs are clear. No significant osseous abnormality is identified. IMPRESSION: Stable cardiomegaly. No definite superimposed infiltrate. Large hiatal hernia. Electronically signed by: Fara Lowery MD (01/17/2018 11:15 AM) [id number]
[2018-01-17] MEDS ORDERED: IV NORMAL SALINE 500ML 500 ML IV ONE (11:45)
[2018-01-17 15:17] LABS: CLARITY,URINE HAZY; COLOR,URINE YELLOW
[2018-01-17 15:18] LABS: AMORPHOUS SEDIMENT,UR PRESENT /HPF; BACTERIA,URINE 0 /HPF (0-FEW); BILIRUBIN,URINE NEG (NEG); GLUCOSE,URINE NEG (NEG); NITRITE,URINE NEG (NEG); SQUAMOUS EPITHELIAL CELL,UR FEW /LPF; UROBILINOGEN,URINE 1 mg/dL (0.2 mg/dL)
[2018-01-17 16:54] VITALS: BP 147/92
== END 2018-01-17 17:20 ==
LOC: ER 10:23
DX: R41.82 Altered mental status, unspecified (principal); I25.10 Atherosclerotic heart disease of native coronary artery without angina pectoris; I11.0 Hypertensive heart disease with heart failure; I50.9 Heart failure, unspecified; J44.9 Chronic obstructive pulmonary disease, unspecified; F32.9 Major depressive disorder, single episode, unspecified; G89.29 Other chronic pain; Z86.73 Personal history of transient ischemic attack (TIA), and cerebral infarction without residual deficits; Z88.2 Allergy status to sulfonamides; Z88.8 Allergy status to other drugs, medicaments and biological substances; Z88.4 Allergy status to anesthetic agent
CPT/HCPCS: 36415; 70450; 71045; 80048; 81001; 84484; 85027; 85610; 85730; 93005; 96360; 99285; J7040